=== PATIENT | female | born 1975 | race Caucasian/White ===

== ENCOUNTER 2025-01-04 15:50 | Outpatient (REF) | payer BC, SELFPAY ==
[2025-01-04 17:33] LABS: Alanine Aminotransferase 23 U/L (0-31); Albumin Level 4.2 g/dL (3.5-5.0); Alkaline Phosphatase 43 U/L (39-117); Aspartate Amino Transferase 26 U/L (5-31); Bilirubin Direct < 0.2 mg/dL (0.0-0.5); Bilirubin Total 0.2 mg/dL (0.0-1.0); Total Protein 7.3 g/dL (6.5-8.0)
--- OUTSIDE RECORDS SUMMARY | 2025-01-04 19:11 | XMS_ITS | Clinical Summary ---
Author Organization [facility] [address] [facility] lding Address [address] [place] [address] Phone Care Team Providers Care Dialysis Biomed Technician Name Role Phone Suzi Boyle MD Primary Care Prov ider Allergies Active Allergy Reactions Criticality Noted Date Comments Codeine 03/09/2006 Lorazepam 03/09/2006 Meperidine Hcl 03/09/2006 Medications traMADoL (ULTRAM) 50 mg tablet TAKE 1 TABLET BY MOUTH FOUR TIMES A DAY FOR 7 DAYS 01/27/2024 Active cycloSPORINE (Restasis MultiDose) 0.05 % drops INSTILL 1 DROP INTO AFFECTED EYE EVERY 12 HOURS 07/26/2022 Active cholecalciferol (VITAMIN D-3) 50 mcg (2,000 unit) tablet Take 1 Tablet by mouth daily. During winter and spring Active desvenlafaxine 50 mg tablet extended release 24 hr Take 50 mg by mouth daily. Active multivitamin with minerals tablet Take 1 Tab by mouth daily. Active Active Problems Problem Noted Date Diagnosed Date Chronic low back pain 08/04/2024 Acute hip pain, left 04/04/2024 Overview (08/04/2024): Last Assessment & Plan: Ms. Peraza describes left anterior thigh pain that began in July 2023 without any inciting event. This gradually improved then she developed left lower back pain focused in the buttock, hip and groin this past November, again without any injury. She has a very hard time sleeping, standing and walking. She needs assistance with stairs. This acutely worsened in mid February where she had 4 days of being unable to lift her leg from a laying or seated position and had to use other people's crutches until she came home from vacation. This was followed by an L1-[address] Solano on 02/28/2024 without improvement. He previously started gabapentin and she underwent a left hip bursa injection in October 2023 and this March 2024. She has had some improvement since that severe episode a month ago and states that last week was her best so far where her pain was only a 3/10. Now, she has been unable to walk for the past 3 days, is currently in a wheelchair and has crutches due to the left buttock and hip pain. She lays on ice packs. On exam, she is nontender over the lumbar spine and over the SI joints though she demonstrates some transverse low back pain at the lumbosacral junction. Left hip mechanical testing provokes severe left buttock pain and internal and external rotation. Seated SLR is negative, strength 5/5. Review of her lumbar spine MRI with and without gadolinium from 12/31/2023 shows evidence of her previous surgeries with pedicle screws on the right at L2-3 and on the left at L2-3-4. There is a chronic compression fracture at L5 and a very slight disc bulge at L1-2 with some splaying of the facets. There is no central or foraminal stenosis. I do not see an etiology of her symptoms on this MRI but she is now nonweightbearing. I am going to send her for left hip x-rays to look for fracture or truly there. If this is negative, then I would like a left lower extremity EMG. Will also start Flexeril which should at least help her relax and sleep as she has had no benefit from tramadol. Left carpal tunnel syndrome 07/20/2023 Bilateral carpal tunnel syndrome 08/26/2022 Numbness in both hands 08/26/2022 Sjogren's syndrome 01/23/2022 Abnormal chest x-ray 12/03/2020 Overview (08/04/2024): 11/2020-? Nipple shadow versus lung nodule, recheck x-ray ordered. Positive ANTONELLA (antinuclear antibody) 10/21/2020 Overview (08/04/2024): +SSA, neg SSB Adverse food reaction 10/05/2018 Recurrent oral ulcers 10/05/2018 Seasonal allergic rhinitis 10/05/2018 Cervical spondylosis 11/26/2017 Overview (08/04/2024): DJD at C5-6 and C6-7, significant left-sided foraminal stenosis at C6-7 Last Assessment & Plan: Ms. Thompson returns with ongoing issues of severe neck pain extending around to her anterior chest. She states that it hurts to look up, her head can feel heavy and like its not sitting in the right place and it seems that she is never without pain. She describes some numbness and tingling in her arms and hands without weakness. She has had extensive treatment including physical therapy which made her worse, in particular, she was incapacitated for 3 days after traction. She has suspected left carpal tunnel syndrome for which an initial injection helped quite a bit. She had a repeat injection 3 weeks ago and was advised not to have any further ones. On exam, cervical rotation is nearly 75 degrees bilaterally, strength is 5/5, she is diffusely hyporeflexic in the upper extremities, knee jerks are 1+, gait is steady, and that there were no myelopathic findings. Review of the cervical spine MRI from [facility] dated 01/17/2023 shows reversal of the normal lordosis with loss of disc height anteriorly with Modic changes at C3-4, kyphosis at C4-5 and severe disc desiccation and loss of height at C5-6 with moderate bilateral foraminal narrowing and at C6-7 with moderate left foraminal narrowing. We reviewed these films in detail and, while C5-6 and C6-7 exhibit the worst degenerative disc disease, there is disease at the other levels and I cautioned her to consider the risks of adjacent segment progression beyond normal aging if we were to treat the to lower levels surgically. She cannot recall a specific injury that may have prompted such diffuse degenerative changes but she did smoke for 13 years 20 years ago. We talked about other treatment options such as trying a home traction unit, acupuncture followed by posture correction/cervical stabilization exercises, epidural injections and surgery. She was given brochures on acupuncture and we will refer her for a C6-7 ROWAN. I believe if she gets her pain under better control, she may make more progress with PT exercises. Menorrhagia 08/30/2017 Anxiety 05/12/2010 Backache 03/09/2006 Overview (08/04/2024): IMO update Encounters Date Type Department Care Team Description 11/10/2024 Telephone Adult Medicine - [place] [address] [place] [address] Suzi Boyle MD Referral (Referral for Family Physiatry) 10/13/2024 Telephone Gastroenterology - [address] [address] [facility] [address] [place] [address] Anne Marie Ashton MD 10/12/2024 Telephone Adult Medicine - [place] [address] [place] [address] Suzi Boyle MD from Last 3 Months Immunizations Name Administration Dates Next Due Influenza Quadravalent, MDCK , 0.5ml, preservative free (Flucelvax) 6mo and older 2020 Pfizer SARS-CoV-2 COVID-19, mRNA, LNP-S, preservative free 09/28/2021 Td Tetanus diptheria (Tdvax) 7yo and older 06/08 Tdap Tetanus diptheria acell ular pertussis (Boostrix; Adacel) 7yo and older 04/05/2019 Surgical History Surgery Date Site/Laterality Comments OTHER SURGICAL HISTORY PROCEDURE: ---- OTHER ----; COMMENT: Hand surgery secondary to trauma OTHER SURGICAL HISTORY PROCEDURE: ---- OTHER ----; COMMENT: Hand surgery secondary to trauma WISDOM TOOTH EXTRACTION PROCEDURE: HISTORICAL WISDOM TEETH EXTRACTION OTHER SURGICAL HISTORY 2003 PROCEDURE: IMPLANT BREAST SILICONE/EQ; COMMENT: saline KNEE SURGERY 08/2012 PROCEDURE: HISTORICAL KNEE SURGERY; COMMENT: Left ACL reconstruction; [facility] BACK SURGERY 1989 PROCEDURE: HISTORICAL BACK SURGERY; COMMENT: L4-5 fusion, harvest of iliac crest bone graft 1989 and hardware removed 2001 OTHER SURGICAL HISTORY 08/30/2017 PROCEDURE: HI HYSTEROSCOPY ENDOMETRIAL ABLATION; COMMENT: hysteroscopy, fractional D&C and Coretta uterine ablation - BACK SURGERY 05/18/2019 PROCEDURE: HISTORICAL BACK SURGERY; COMMENT: L2-4 decompression and fusion for adjacent segment degeneration and spondylolisthesis, Dr. Asher BACK SURGERY 08/2020 PROCEDURE: HISTORICAL BACK SURGERY; COMMENT: L2-4 revision for fractured left L4 screw, Dr. Asher CARPAL TUNNEL RELEASE 07/21/2023 Left PROCEDURE: HISTORICAL CARPAL TUNNEL REL Medical History Medical History Date Comments Backache, unspecified 03/09/2006 DX:Backach e, unspecified Anxiety 05/12/2010 DX:Anxiety Other specified personal his tory presenting hazards to health(V15.89) DX:Other specifie d personal history presenting hazards to health(V15.89); COMMENT: culpo Family History Medical History Relation Name Comments Breast cancer Aunt m 60s mothers sister Hypertension Brother 1 Other: sudden cardiac cath Brother 2 d eceased at 50 Prostate cancer Father No Known Problems Maternal Grandfather No Known Problems Maternal Grandmother Lung cancer Mother Other: hashimotos Mother Other: shellfish Mother Diabetes Mother's side 1 Other: heart disease Mother's side 2 No Known Problems Paternal Grandfather No Known Problems Paternal Grandmother Hypertension Sister Relation Name Status Comments Aunt m 60s Alive Brother 1 Alive Brother 2 (Age 50) Father Alive Maternal Grandfather Maternal Grandmother Mother Alive hypothyroidism Mother's side 1 Mother's side 2 Paternal Grandfather Paternal Grandmother Sister Alive Social History Tobacco Use Types Packs/Day Years Used Date Smoking Tobacco: Former Cigarettes Q uit: 11/08/1990 Smokeless Tobacco: Never Alcohol Use Standard Drinks/Week Comments Not Currently 0 (1 standard drink = 0.6 oz pur e alcohol) Housing Instability Answer Date Recorde d Are you worried that in the next 2 months you may not have stable housing? No 09/12/2024 Food Access & Nutrition Answer Date Rec orded Do you have access to a vari ety of food including fruits and vegetables? Yes 09/12/2024 Access to Healthcare Answer Date Record ed Within the last 3 months, errol wade many times did you visit the emergency department for your medical care? 0 09/12/2024 Health Literacy Answer Date Recorded How often do you need to hav e someone help you when you read instructions, pamphlets, or other written material from your doctor or pharmacy? Never 09/12/2024 Caregiver: How often do you need to have someone help you when you read instructions, pamphlets, or other written material from your doctor or pharmacy? Not on file 09/12/2024 Financial Risk Answer Date Recorded How hard is it for you to pa y for the very basics like food, housing, medical care, and air conditioning / heating? Not very hard 09/12/2024 Transportation Answer Date Recorded Has the lack of transportati on kept you from meetings, work, or from getting things needed for daily living? No Has the lack of transportati on kept you from medical appointments or from getting medications? No 09/12/2024 Social Isolation Answer Date Recorded How often do you feel lonely or isolated from th ose around you? Never 09/12/2024 Food Risk Answer Date Recorded Within the past 12 months we worried whether our food would run out before we got money to buy more. Never true 09/12/2024 Within the past 12 months th e food we bought just didn't last and we didn't have money to get more. Never true 09/12/2024 Dependent Care Answer Date Recorded Do you need help finding or paying for care for your loved ones. For example, child support agent or elderly care for an older adult? No 09/12/2024 Education Answer Date Recorded Do you think completing more education or training, like finishing a GED, going to college, or learning a trade, would be helpful for you? No 09/12/2024 Employment and Income Answer Date Recor ded During the last four weeks, have you been actively looking for work? No 09/12/2024 Living Situation Answer Date Recorded What is your living situation? 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 Not on file Not on file Not on file Obstetrics History Para Term AB IAB SAB Ectopic Multiple Livin g Live Births 3 3 3 3 Date Outcome GA Total Labor Labor/2nd/3rd Weight Sex Type Anes PTL Alexandra A1 A5 Name Clin Term Term Term Last Filed Vital Signs Vital Sign Reading Time Taken Comments Blood Pressure 103/70 09/12/2024 4:01 PM EST Pulse 81 09/12/2024 4:01 PM EST Temperature 36.8 ??C (98.3 ??F) 09/12/2024 4:01 PM ES T Respiratory Rate - - Oxygen Saturation - - Inhaled Oxygen Concentration - - Weight 67.1 kg (148 lb) 09/12/2024 4:01 PM EST Height 163.8 cm (5' 4.5 ) 09/12/2024 4:01 PM EST Body Mass Index 25.01 09/12/2024 4:01 PM EST Plan of Treatment Upcoming Encounters Date Type Department Care Team (Late st Contact Info) Description 02/06/2025 3:30 PM EDT Office Visit Obstetrics and Gynecology - [address] [phone] Jennifer Patiño CNM [address] [place] [phone] Health Maintenance Due Date Last Done Comments Hepatitis B Vaccines (1 of 3 - 19+ 3-dose series) 1993 Colorectal Cancer Screening: Colonoscopy 10/17/2022 HIV Screening 10/17/2022 COVID-19 Vaccine ( season) 2024 09/28/2021, 02/16/2021, 01/26/2021 Pneumococcal Vaccine: 50+ Years (1 of 1 - PCV) 2024 Zoster Vaccines (1 of 2) 2024 Influenza Vaccine (#1) 2025 2020 Postp oned from 07/09/2024 (Patient Refused) Social Influencers of Health Screening 09/12/2025 09/12/2024 Depression Screening 11/19/2025 11/19/2024 Cervical Cancer Screening: HPV 08/05/2026 08/05/2021 Breast Cancer Screening 10/02/2026 10/02/20 24, 09/28/2023, 09/23/2022, Additional history exists DTaP,Tdap,and Td Vaccines (3 - Td or Tdap) 04/05/2029 04/05/2019, 06/08/2005 Cholesterol Screening (Lipid Panel) 09/18/2029 09/18/2024, 01/23/2022 Hepatitis C Screening Completed 09/18/2024 HIB Vaccines Aged Out No longer eligi ble based on patient's age to complete this topic HPV Vaccines Aged Out No longer eligi ble based on patient's age to complete this topic Hepatitis A Vaccines Aged Out No long er eligible based on patient's age to complete this topic IPV Vaccines Aged Out No longer eligi ble based on patient's age to complete this topic MMR Vaccines Aged Out No longer eligi ble based on patient's age to complete this topic Meningococcal ACWY Vaccine Aged Out N o longer eligible based on patient's age to complete this topic Meningococcal B Vacine Aged Out No lo nger eligible based on patient's age to complete this topic Pneumococcal Vaccine: Pediatrics (0 to 5 Years) and At-Risk Patients (6 to 64 Years) Aged Out No longer eligible based on patient's age to complete this topic RSV Immunization Patients Under 20 months Aged Out No longer eligible based on patient's age to complete this topic Varicella Vaccines Aged Out No longer eligible based on patient's age to complete this topic Procedures Procedure Name Priority Date/Time Associated Diagnosis Comments MG MAMMO DIGITAL SCREENING W DUC BILAT Routine 10/02/2024 4:45 PM EST Encounter for screening mammogram for breast cancer HEPATITIS C ANTIBODY Routine 09/18/2024 9:03 AM EST Need for hepatitis C screening test LIPID PANEL WITH REFLEX TO DIRECT LDL Routine 09/18/2024 9:03 AM EST Screening, lipid HM HPV Routine 08/05/2021 from Last 3 Months or Most Recently Relevant to Health Maintenance Results * MG Mammo Digital Screening w Duc bilat (10/02/2024 4:45 PM EST) Anatomical Region Laterality Modality Breast Bilateral Mammography 10/03/2024 10:1 4 AM EST Impressions 10/03/2024 10:19 AM EST Stable mammographic appearance of the breasts. ??No evidence of malignancy is seen. A negative mammogram in the presence of a clinically suspicious palpable abnormality does not preclude the possibility of malignancy or alter the indications for biopsy. BI-RADS: ??Category 1: Negative RECOMMENDATION(S): 1: Routine screening mammogram BILATERAL in 1 year. Mammo Location: [facility], [address] [place] [address], [phone], . -------- FINAL REPORT -------- Dictated By: Milly Villagomez Dictated Date: 10/03/2024 10:14 ET Assigned Physician: Milly Villagomez Reviewed and Electronically Signed By: Milly Villagomez Signed Date: 10/03/2024 10:19 ET Workstation ID: [id number] Transcribed By: Self Edit Transcribed Date: 10/03/2024 10:14 ET Narrative 10/03/2024 10:19 AM EST EXAM: MAMMO DIGITAL SCREENING W DUC BILAT EXAM DATE: 10/02/2024 4:30 PM HISTORY: ??Breast cancer screen, avg risk, asymptomatic (Age => 40y) COMPARISON: Mammograms dating back to 09/05/2020 with most recent of 09/28/2023. TECHNIQUE: Bilateral digital breast tomosynthesis with routine and displacement views was performed in the CC and MLO projections. Computer aided detection with Pollen AI 3D 3.1 was employed. TISSUE DENSITY: b. There are scattered areas of fibroglandular density. FINDINGS: No suspicious masses, grouped microcalcifications, or areas of architectural distortion are seen. The skin and vascularity are unremarkable. The visualized saline implants are intact. Procedure Note Milly Villagomez MD - 10/03/2024 EXAM: MAMMO DIGITAL SCREENING W DUC BILAT EXAM DATE: 10/02/2024 4:30 PM HISTORY: Breast cancer screen, avg risk, asymptomatic (Age => 40y) COMPARISON: Mammograms dating back to 09/05/2020 with most recent of09/28/2023. TECHNIQUE: Bilateral digital breast tomosynthesis with routine anddisplacement views was performed in the CC and MLO projections. Computeraided detection with Pollen AI 3D 3.1 was employed. TISSUE DENSITY: b. There are scattered areas of fibroglandular density. FINDINGS: No suspicious masses, grouped microcalcifications, or areas ofarchitectural distortion are seen. The skin and vascularity areunremarkable. The visualized saline implants are intact. IMPRESSION: Stable mammographic appearance of the breasts. No evidence of malignancyis seen. A negative mammogram in the presence of a clinically suspicious palpableabnormality does not preclude the possibility of malignancy or alter theindications for biopsy. BI-RADS: Category 1: Negative RECOMMENDATION(S): 1: Routine screening mammogram BILATERAL in 1 year. Mammo Location: [facility], [address] [place] [address], [phone], . -------- FINAL REPORT -------- Dictated By: Milly Villagomez Dictated Date: 10/03/2024 10:14 ET Assigned Physician: Milly Villagomez Reviewed and Electronically Signed By: Milly Villagomez Signed Date: 10/03/2024 10:19 ET Workstation ID: [id number] Transcribed By: Self Edit Transcribed Date: 10/03/2024 10:14 ET Suzi Boyle MD IMG BI PROCEDURES Final Result * Hepatitis C antibody (09/18/2024 9:03 AM EST) [facility] Hepatitis C Antibody Negative Negative LAB CHEMISTRY METHOD 09/18/2024 12:59 PM EST [facility] Blood Venous blood specimen / Unknown Venipuncture / Unknown 09/18/2024 9:03 AM EST 09/18/2024 9:03 AM EST Tre [facility] LAB BLOOD ORDERABLES Final Res ult [facility] [address] [place] [address], [place] [phone] * (ABNORMAL) Lipid panel with reflex to direct LDL (09/18/2024 9:03 AM EST) Pathologist [facility] Cholesterol 205(H) 0 - 200 mg/dL LAB CHEMISTRY METHOD 09/18/2024 12:20 PM EST [facility] Triglycerides 68 0 - 150 mg/dL LAB CHEMISTRY METHOD 09/18/2024 12:20 PM EST [facility] HDL 88 >=40 mg/dL LAB CHEMISTRY METHOD 09/18/2024 12:20 PM [facility] LDL Calculated 103(H) 0 - 100 mg/dL LAB CHEMISTRY METHOD 09/18/2024 12:20 PM EST [facility] VLDL Cholesterol [place] 13.6 mg/dL LAB CHEMISTRY METHOD 09/18/2024 12:20 PM EST [facility] Non HDL Chol. (LDL+VLDL) 117 <145 mg/dL LAB CHEMISTRY METHOD 09/18/2024 12:20 PM [facility] Chol/HDL Ratio 2.3 0.0 - 4.4 LAB CHEMISTRY METHOD 09/18/2024 12:20 PM [facility] Blood Venous blood specimen / Unknown Venipuncture / Unknown 09/18/2024 9:03 AM EST 09/18/2024 9:03 AM EST Tre [facility] LAB BLOOD ORDERABLES Final Res ult [facility] [address] [place] [address], [place] [phone] * Cervical Cancer Screening: HPV (08/05/2021) Pathologist [facility] Cervical Cancer Screening: HPV Negative, Abstracted Historical Provider HEALTH MAINTENANCE Final Result from Last 3 Months or Most Recently Relevant to Health Maintenance Insurance [facility] Care Teams Dialysis Biomed Technician Relationship Specialty Start Date End Date Suzi Boyel MD [address] [place] [phone] PCP - General Internal Medicine 06/13/21
== END 2025-01-04 15:51 | disposition home or self-care (01) ==
LOC: HO.LAB 15:50
PROVIDERS: PCP Internal Medicine; Visit Provider Otolaryngology
DX: Z02.89 Encounter for other administrative examinations (principal)
CPT/HCPCS: 36415; 80076

== ENCOUNTER 2025-07-24 15:43 | Outpatient (AMB) | payer BC, SELFPAY ==
--- NOTE | 2025-07-24 15:48 | A.OFFVIS_ITS ---
Intake Visit Reasons: follow up Allergies lorazepam (From Ativan) Allergy (Severe, Unverified 07/25/20 15:16) AGITATION AND HALLUCINATIONS codeine (Codeine) Adverse Reaction (Mild, Unverified 07/25/20 15:16) NAUSEA & VOMITING meperidine (From Demerol) Adverse Reaction (Mild, Unverified 07/25/20 15:16) NAUSEA & VOMITING Codeine Phosphate Allergy (Unknown, Uncoded 05/24/13 00:00) vomiting Medication List - Last Reconciled 07/24/25 by Agustina White MD desvenlafaxine ER 50 mg PO DAILY tramadol 50 mg PO DAILY HPI Comments Details: This is a 48-year-old active woman with a history of Sjogren syndrome who was had to her history of spinal fracture with fusion of L4-5 in 1989 and a laminectomy and fusion in 2018 between L2 and L4 by Dr. Asher. For the last 2 years she's had intermittent pain in the left thigh and a sense of weakness. There've been times when it gets worse. There was a 2 week period in July 2023 when the left leg felt that it wasn't working normally. She subsequently developed pain in the left groin, hip and buttock area and then pinned on the calf in October. He then subsided. She had an exacerbation of severe left sciatic pain in February that lasted a total of 10 days. She was on vacation and woke up with severe pain going from the left buttock to the left calf and she could hardly walk. It then cleared up only to recur for 10 days. Again in the end of March 2024. She had the followup MRI of the lumbar spine and everything looks stable with no evidence of nerve injury. She had a nerve conduction EMG in April 2024, which was unremarkable. ?She developed fairly quick onset of anosmia and loss of taste on April 06. She also had a couple of episodes of spatial disorientation and some word finding difficulties. She just did for Covid a couple of times but was negative. In April she was given some prednisone for a week, which didn't seem to make much of a difference. Her smell has not come back, although occasionally she feels a slight with. She can tell bitter sour and extreme salt, but cannot tell flavors. No history of head trauma. She had an MRI of the brain which I reviewed with her and found to be unremarkable except for a single left posterior parietal periventricular white matter hyperintensity. [facility] Medical History (Updated 07/24/25 @ 16:10 by Agustina White MD) Sciatica of left side Anosmia Carpal tunnel syndrome, bilateral upper limbs Review of Systems Const Details: Sleep:? Difficulty getting to sleep?denies.? Difficulty maintaining sleep?denies? .? Urge to move legs?denies.? Teeth grinding?denies.? Shouting or Kicking during sleep?denies.? Abnormal behavior during sleep?denies.? Excessive sleep?denies.? Snoring?denies.? Daytime sleepiness?denies.? ?? General/Constitutional:? Change in appetite?denies.? Chills?denies.? Fatigue?denies.? Fever?denies .? Weight gain?denies.? Weight loss?denies.? ?? Ophthalmologic:? Blurred vision?denies.? Diminished visual acuity?denies.? ?? ENT:? Stuffiness?denies.? Decreased hearing?denies.? Dry mouth?denies.? Ear pain?denies.? Nosebleed?denies.? Ringing in the ears?denies.? Sinus pain?denies .? Sore throat?denies.? Swollen glands?denies.? ?? Endocrine:? Cold intolerance?denies.? Excessive thirst?denies.? Frequent urination? denies.? Heat intolerance?denies.? ?? Respiratory:? Shortness of breath?denies.? Chest pain?denies.? Cough?denies.? ?? Breast:? Breast lump?denies.? Nipple discharge?denies.? ?? Cardiovascular:? Chest pain at rest?denies.? Chest pain with exertion?denies.? Claudication?denies.? Dizziness?denies.? Fluid accumulation in the legs?denies.? Irregular heartbeat?denies.? Palpitations?denies.? ?? Gastrointestinal:? Abdominal pain?denies.? Constipation?denies.? Diarrhea?denies.? Difficulty swallowing?denies.? Heartburn?denies.? Nausea?denies.? Rectal bleeding?denies.? ?? Hematology:? Easy bruising?denies.? Prolonged bleeding?denies.? ?? Genitourinary:? Frequent urination?denies.? Urgency?denies.? Incontinence?denies.? Erectile Dysfunction?denies.? ?? Musculoskeletal:? Neck pain?denies.? Back pain?denies.? Muscle aches?denies.? Painful joints?admits.? Sciatica?left sided intermittently.? Weakness?denies.? ?? Podiatric:? Difficulty walking?denies.? Foot numbness?denies.? ?? Neurologic:? Difficulty swallowing?denies.? Balance difficulty?denies.? Coordination? normal.? Difficulty speaking?denies.? Dizziness?denies.? Fainting?denies.? Gait abnormality?denies.? Headache?denies.? Loss of strength?denies.? Loss of use of extremity?denies.? Low back pain?denies.? Memory loss?denies.? Seizures?denies.? Tics?denies.? Tingling/Numbness?denies.? Transient loss of vision?denies.? Tremor?denies.? ?? Psychiatric:? Anxiety?denies.? Auditory/visual hallucinations?denies.? Delusions?denies .? Depressed mood?denies.? Stressors?denies.? Substance abuse?denies.? Suicidal thoughts?denies.? ? Physical Exam Neuro Other: Neurological: ? Abnormal neurological findings:??none.? Mental Status:?alert and oriented X 3,?Normal attention, orientation, memory and affect.? Cranial Nerves:?Pupils are equal, round and reactive to light. Fundoscopy shows normal disc bilaterally. External occular muscles are intact. Visual diana are full, no ptosis. Face is symmetrical, no facial weakness or droop. Facial sensations are normal. Tongue protrudes in midline. Palate elevates symmetrically. Shoulder shrugging is normal..? Motor Examination:?Normal muscle tone, bulk and strength,?No atrophy or fasciculations,?No drift of the extended upper extremities,?Deep tendon reflexes are 2+?,?Plantars are flexor?.? Motor Strength:? Proximal Muscles (out of 5): ?5 ? Distal Muscles (out of 5): ?5 ? Neck Flexors (out of 5): ?5 ? Neck Extensors (out of 5): ?5 ? Deltoid (out of 5): ?5 ? Biceps (out of 5): ?5 ? Triceps (out of 5): ?5 ? Serratus Anterior (out of 5): ?5 ? Wrist Extensors (out of 5): ?5 ? APB (out of 5): ?5 ? Finger Spread (out of 5): ?5 ? Ileopsoas (out of 5): ?5 ? Quadriceps (out of 5): ?5 ? Hamstrings (out of 5): ?5 ? Tibialis Anterior (out of 5): ?5 ? Peronei (out of 5): ?5 ? EDB (out of 5): ?5 ? Gastrocnemius (out of 5): ?5 ? Straight Leg Raising:?90 degrees.? Sensory Exam:?Normal light touch, temperature, pinprick, vibration and joint-position sensations?,?Rhomberg sign is absent.? Coordination:?no ataxia,?no titubation,?gpvubl-ud-enbq, nchv-jcai-ykvt test and rapid alternating movements were normal.? Gait Exam:?Within normal limits.? Cerebellar Signs:?Tcmsyf-jc-lvin and gmyg-vy-sghg is normal,?no dysdiadochokinesia?.? Extrapyramidal System:?No tremor, rigidity with normal facial expressions,?No bradykinesia, no bradyphrenia. Normal arm swing and posture. No propulsion or retropulsion.? Speech:?Normal,?no dysphasia or dysarthria..? Mini Mental Status Exam: ? Level of Consciousness:?Alert.? Orientation:?Knows correct year, month, date, day and season,?Knows correct city, county and state. Knows correct location and floor.? Registration:?Able to register 3 objects.? Attention:?Serial 7's performed accurately.? Recall:?Able to recall 3 out of 3 objects.? Language:?Normal spontaneous speech, fluency, repetition,naming, comprehension, reading and writing.? Total Score:?30/30.? Assessment & Plan Assessment & Plan (1) Lumbar radiculitis: Comment: April 2024 NCV/EMG of lower extremities : Normal including EMG left L4-S1. Code(s): M54.16 - Radiculopathy, lumbar region Category: Medical (2) Anosmia: Code(s): R43.0 - Anosmia Category: Medical Plan: Brain MRI May 2024 reviewed with patient. Single , fairly large left posterior parietal periventricular white matter abnormality- non specific ? demyelinative.Atypical for lacunar stroke (3) Demyelinating changes in brain: Code(s): G37.9 - Demyelinating disease of central nervous system, unspecified Category: Medical Plan f/u MRI brain. Core strengthening exercises for LBP Orders: Orders MR head/brain wo/w con 4 Weeks G37.9 - Demyelinating disease of central nervous system, unspecified Coding Level of Care Code Est Pt Level 4 (46330) Diagnoses Lumbar radiculitis M54.16 Anosmia R43.0 Demyelinating changes in brain G37.9
--- OUTSIDE RECORDS SUMMARY | 2025-07-24 18:54 | XMS_ITS | Clinical Summary ---
Author Organization [facility] [address] [facility] l[address] Address [address] [place] [address] Phone Care Team Providers Care Cooker Casing Name Role Phone Suzi Boyle MD Primary Care Prov ider Allergies Active Allergy Reactions Criticality Noted Date Comments Codeine GI intolerance 03/09/2006 Meperidine Hcl GI intolerance 03/09/2006 Medications traMADoL (ULTRAM) 50 mg tablet [...] Overview (08/04/2024): Last Assessment & Plan: Ms. Conley describes left anterior thigh pain that began [...] Numbness in both hands 08/26/2022 Sjogren's syndrome (CMS/HCC V24) 01/23/2022 Abnormal chest x-ray 12/03/2020 Overview (08/04/2024): [...] Review of the cervical spine MRI from [facility] dated 01/17/2023 shows reversal of the normal [...] Encounters Date Type Department Care Team Description 06/13/2025 Telephone Adult Medicine - [place] [address] [place] [address] Suzi Sexton MD 05/17/2025 1:22 PM EDT Anesthesia Event [facility] Endoscopy [address] [place] [address] Poonam Ribera MD 05/17/2025 11:57 AM EDT - 05/17/2025 11:59 PM EDT Hospital Encounter [facility] [address] [place] [address] Anne Marie Ashton MD Johnson, Lorraine, CRNA Kriz, Petra, MD Colon cancer screening Discharge Disposition: Home or Self Care from Last 3 Months Immunizations Name Administration [...] HISTORICAL KNEE SURGERY; COMMENT: Left ACL reconstruction; [facility] BACK SURGERY 1989 PROCEDURE: HISTORICAL BACK SURGERY; COMMENT: L4-5 fusion, harvest of iliac crest bone graft 1989 and hardware removed 2001 OTHER SURGICAL HISTORY 08/30/2017 PROCEDURE: AL HYSTEROSCOPY ENDOMETRIAL ABLATION; COMMENT: hysteroscopy, fractional D&C [...] history presenting hazards to health(V15.89); COMMENT: culpo H/O Sjogren's disease ([facility] V24) Osteoarthritis Family History Medical History Relation Name Comments [...] Cigarettes Q uit: 11/08/1990 Smokeless Tobacco: Never Tobacco Cessation:Counseling Given: Not Answered Alcohol Use Standard Drinks/Week Comments Not Currently [...] for your loved ones. For example, child care supervisor or elderly care for an older adult? [...] What is your living situation? 1 11/12/2023 Interpersonal Safety Answer Date Record ed Physical Abuse 05/17/2025 Verbal Abuse 05/17/2025 Comments No Sex and Gender Information Value Date Recorded Sex Assigned at Female 07/08/2025 4:08 PM EDT Legal Sex Female 5:14 PM EST Gender Identity Female 07/08/2025 4:08 PM EDT Sexual Orientation Straight 07/08/2025 4: 08 PM EDT Occupation Industry Job Start Date Job End [...] Sign Reading Time Taken Comments Blood Pressure 113/64 05/17/2025 2:08 PM EDT Pulse 62 05/17/2025 2:08 PM EDT Temperature 36.7 C (98.1 F) 05/17/2025 1:48 PM EDT Respiratory Rate 15 05/17/2025 2:08 PM EDT Oxygen Saturation 100% 05/17/2025 2:08 PM EDT Inhaled Oxygen Concentration - - Weight 68 kg (150 lb) 05/09/2025 1:00 PM EDT Height 165.1 cm (5' 5 ) 05/09/2025 1:00 PM EDT Body Mass Index 24.96 05/09/2025 1:00 PM EDT Plan of Treatment Upcoming Encounters Date Type Department Care Team (Late st Contact Info) Description 09/13/2025 4:00 PM EST Office Visit Adult Medicine [facility] [address] [place] [id number] Tre Alexander PA [address] [place] [address] 10/08/2025 3:40 PM EST Appointment Radiology Department [address] [address] Health Maintenance Due Date Last Done Comments Hepatitis B Vaccines (1 of 3 - 19+ 3-dose series) 1993 HIV Screening 10/17/2022 Pneumococcal Vaccine: 50+ Years (1 of 1 - PCV) 2024 Zoster Vaccines (1 of 2) 2024 COVID-19 Vaccine (4 - season) 2025 09/28/2021, 02/16/2021, 01/26/2021 Influenza Vaccine (#1) 2025 2020 Social Influencers of Health Screening 09/12/2025 09/12/2024 Cervical Cancer Screening: HPV 08/05/2026 08/05/2021 Breast Cancer Screening 10/02/2026 10/02/20 24, 09/28/2023, 09/23/2022, Additional history exists DTaP,Tdap,and Td Vaccines (3 - Td or Tdap) 04/05/2029 04/05/2019, 06/08/2005 Cholesterol Screening (Lipid Panel) 09/18/2029 09/18/2024, 01/23/2022 Colorectal Cancer Screening: Colonoscopy 05/17/2035 05/17/2025 Hepatitis C Screening Completed 09/18/2024 Depression Screening Completed 02/01/2025 HIB Vaccines Aged Out No longer eligi [...] age to complete this topic Meningococcal B Vaccine Aged Out No l onger eligible based on patient's age to complete this topic RSV Immunization Patients Under 20 months Aged Out No longer eligible based on patient's age to complete this topic Varicella Vaccines Aged Out No longer eligible based on patient's age to complete this topic Procedures Procedure Name Priority Date/Time Associated Diagnosis Comments COLONOSCOPY Routine 05/17/2025 1:47 PM EDT Colon cancer screening MG MAMMO DIGITAL SCREENING W JAQUAN BILAT Routine 10/02/2024 4:45 PM EST Encounter for screening mammogram for breast cancer HEPATITIS C ANTIBODY Routine 09/18/2024 9:03 AM EST Need for hepatitis C screening test LIPID PANEL WITH REFLEX TO DIRECT LDL Routine 09/18/2024 9:03 AM EST Screening, lipid HM HPV Routine 08/05/2021 from Last 3 Months or Most Recently Relevant to Health Maintenance Results * COLONOSCOPY Anesthesia - MAC; [facility] ENDOSCOPY (05/17/2025 1:47 PM EDT) Anatomical Region Laterality Modality Endoscopy 05/17/2025 1:14 PM EDT Impressions 05/17/2025 1:45 PM EDT - Diverticulosis in the sigmoid colon and in the transverse colon. - The examination was otherwise normal on direct and retroflexion views. - No specimens collected. Recommendation: - Repeat colonoscopy in 10 years for screening purposes. Narrative 05/17/2025 1:45 PM EDT [facility] GI Patient Name: Amrita Conley Procedure Date: 05/17/2025 1:14 PM Date of : 1975 Age: 49 Gender: Female Note Status: Finalized Attending MD: Anne Marie Asthon MD, Procedure Date No Time: 05/17/2025 Procedure: Colonoscopy Indications: Screening for colorectal malignant neoplasm Providers: Anne Marie Ashton MD Referring MD: Suzi Boyle MD Medicines: Propofol per Anesthesia Complications: No immediate complications. Estimated Blood Loss: Estimated blood loss: none. Procedure: Pre-Anesthesia Assessment: - ASA Grade Assessment: II - A patient with mild systemic disease. After I obtained informed consent, the scope was passed under direct vision. Throughout the procedure, the patient's blood pressure, pulse, and oxygen saturations were monitored continuously.The Colonoscope was introduced through the anus and advanced to the cecum, identified by appendiceal orifice and ileocecal valve. The colonoscopy was performed without difficulty. The patient tolerated the procedure well. The quality of the bowel preparation was adequate. Findings: The perianal and digital rectal examinations were normal. A few small-mouthed diverticula were found in the sigmoid colon and transverse colon. The exam was otherwise without abnormality on direct and retroflexion views. Procedure Code(s): --- Professional --- G0121, Colorectal cancer screening; colonoscopy on individual not meeting criteria for high risk Diagnosis Code(s): --- Professional --- Z12.11, Encounter for screening for malignant neoplasm of colon CPT copyright 2020 [employer]. All rights reserved. The codes documented in this report are preliminary and upon vine pruner review may be revised to meet current compliance requirements. Anne Marie Ashton MD 05/17/2025 1:45:18 PM This report has been signed electronically.Anne Marie Ashton MD Number of Addenda: 0 Note Initiated On: 05/17/2025 1:14 PM Scope In: Scope Out: Endoscopy Department at [facility] - [address] [place] [phone] Procedure Note Anne Marie Ashton MD - 05/17/2025 [facility] GI Patient Name: Amrita Conley Procedure Date: 05/17/2025 1:14 PM Date of : 1975 Age: 49 Gender: Female Note Status: Finalized Attending MD: Anne Marie Ashton MD, Procedure Date No Time: 05/17/2025 Procedure: Colonoscopy Indications: Screening for colorectal malignant neoplasm Providers: Anne Marie Ashton MD Referring MD: Szui Boyle MD Medicines: Propofol per Anesthesia Complications: No immediate complications. Estimated Blood Loss: Estimated blood loss: none. Procedure: Pre-Anesthesia Assessment: - ASA Grade Assessment: II - A patient with mild systemic disease. After I obtained informed consent, the scope was passed under direct vision. Throughout theprocedure, the patient's blood pressure, pulse, and oxygen saturations were monitored continuously.The Colonoscope was introduced through the anus and advanced to the cecum, identified by appendiceal orifice and ileocecal valve. The colonoscopy was performed without difficulty. The patient tolerated the procedure well. The quality of the bowel preparation was adequate. Findings: The perianal and digital rectal examinations were normal. A few small-mouthed diverticula were found in the sigmoid colon and transverse colon. The exam was otherwise without abnormality ondirect and retroflexion views. Procedure Code(s): --- Professional --- G0121, Colorectal cancer screening; colonoscopy on individual not meeting criteria for high risk Diagnosis Code(s): --- Professional --- Z12.11, Encounter for screening for malignantneoplasm of colon CPT copyright 2020 [employer]. All rights reserved. The codes documented in this report are preliminary and upon vine pruner reviewmay be revised to meet current compliance requirements. Anne Marie Ashton MD 05/17/2025 1:45:18 PM This report has been signed electronically.Anne Marie Ashton MD Number of Addenda: 0 Note Initiated On: 05/17/2025 1:14 PM Scope In: Scope Out: Endoscopy Department at [facility] - [address] [place] [id number] IMPRESSION: - Diverticulosis in the sigmoid colon and in the transverse colon. - The examination was otherwise normal on directand retroflexion views. - No specimens collected. Recommendation: - Repeat colonoscopy in 10 years for screening purposes. Anne Marie Ashton MD GI~PROCEDURE ORDERABLES Final Result * MG Mammo Digital Screening w Jaquan bilat (10/02/2024 4:45 PM EST) Anatomical Region Laterality Modality Breast Bilateral Mammography 10/03/2024 10:1 4 AM EST Impressions 10/03/2024 10:19 AM EST Stable mammographic appearance of the breasts. No evidence of malignancy is seen. A negative mammogram in the presence of a clinically suspicious palpable abnormality does not preclude the possibility of malignancy or alter the indications for biopsy. BI-RADS: Category 1: Negative RECOMMENDATION(S): 1: Routine screening mammogram BILATERAL in 1 year. Mammo Location: [facility], [address] [place] [address], [facility], . -------- FINAL REPORT -------- Dictated By: Milly Villagomez Dictated Date: 10/03/2024 10:14 ET Assigned Physician: Milly Villagomez Reviewed and Electronically Signed By: Milly Villagomez Signed Date: 10/03/2024 10:19 ET Workstation ID: [id number] Transcribed By: Self Edit Transcribed Date: 10/03/2024 10:14 ET Narrative 10/03/2024 10:19 AM EST EXAM: MG MAMMO DIGITAL SCREENING W JAQUAN BILAT EXAM DATE: 10/02/2024 4:30 PM HISTORY: Breast cancer screen, avg risk, asymptomatic (Age => 40y) COMPARISON: Mammograms dating back to 09/05/2020 with most recent of 09/28/2023. TECHNIQUE: Bilateral digital breast tomosynthesis with routine and displacement views was performed in the CC and MLO projections. Computer aided detection with [employer] AI 3D 3.1 was employed. TISSUE DENSITY: b. There are scattered areas of fibroglandular density. FINDINGS: No suspicious masses, grouped microcalcifications, or areas of architectural distortion are seen. The skin and vascularity are unremarkable. The visualized saline implants are intact. Procedure Note Milly Villagomez MD - 10/03/2024 EXAM: MAMMO DIGITAL SCREENING W JAQUAN BILAT EXAM DATE: 10/02/2024 4:30 PM HISTORY: Breast cancer screen, avg risk, asymptomatic (Age => 40y) COMPARISON: Mammograms dating back to 09/05/2020 with most recent of09/28/2023. TECHNIQUE: Bilateral digital breast tomosynthesis with routine anddisplacement views was performed in the CC and MLO projections. Computeraided detection with i[employer] ProFound AI 3D 3.1 was employed. TISSUE DENSITY: [...] mammogram BILATERAL in 1 year. Mammo Location: [facility], [address] [place] [address], [id number], . -------- FINAL REPORT -------- Dictated By: Milly Villagomez Dictated Date: 10/03/2024 10:14 ET Assigned Physician: Milly Villagomez Reviewed and Electronically Signed By: Milly Villagomez Signed Date: 10/03/2024 10:19 ET Workstation ID: [id number] Transcribed By: Self Edit Transcribed Date: 10/03/2024 10:14 ET us Suzi Boyle MD IMG BI PROCEDURES Final Result * Hepatitis C antibody (09/18/2024 9:03 AM EST) Pathologist [facility] Hepatitis C Antibody Negative Negative LAB CHEMISTRY METHOD 09/18/2024 12:59 PM EST [facility] Blood Venous blood specimen / Unknown Venipuncture / Unknown 09/18/2024 9:03 AM EST 09/18/2024 9:03 AM EST us Tre [facility] LAB BLOOD ORDERABLES Final Res ult [facility] [address] [place] [address], [place] [phone] * (ABNORMAL) Lipid panel with reflex to direct LDL (09/18/2024 9:03 AM EST) [facility] Cholesterol 205(H) 0 - 200 mg/dL LAB CHEMISTRY METHOD 09/18/2024 12:20 PM [facility] Triglycerides 68 0 - 150 mg/dL LAB CHEMISTRY METHOD 09/18/2024 12:20 PM [facility] HDL 88 >=40 mg/dL LAB CHEMISTRY METHOD 09/18/2024 12:20 PM EST [facility] LDL Calculated 103(H) 0 - 100 mg/dL LAB CHEMISTRY METHOD 09/18/2024 12:20 PM [facility] VLDL Cholesterol [place] 13.6 mg/dL LAB CHEMISTRY METHOD 09/18/2024 12:20 PM EST [facility] Non HDL Chol. (LDL+VLDL) 117 <145 mg/dL LAB CHEMISTRY METHOD 09/18/2024 12:20 PM [facility] Chol/HDL Ratio 2.3 0.0 - 4.4 LAB CHEMISTRY METHOD 09/18/2024 12:20 PM EST [facility] Blood Venous blood specimen / Unknown Venipuncture / Unknown 09/18/2024 9:03 AM EST 09/18/2024 9:03 AM EST Tre [facility] LAB BLOOD ORDERABLES Final Res ult [facility] [address] [place] [address], * Cervical Cancer Screening: HPV (08/05/2021) Cervical Cancer Screening: HPV Negative, Abstracted Historical Provider HEALTH MAINTENANCE Final Result from Last 3 Months or Most Recently Relevant to Health Maintenance Insurance [facility] Care Teams Cooker Casing Relationship Specialty Start Date End Date Suzi Boyle MD PCP - General Internal Medicine 06/13/21
== END 2025-07-24 16:15 | disposition home or self-care (01) ==
PROVIDERS: PCP Internal Medicine; Referring Provider Internal Medicine; Visit Provider Psychiatry & Neurology Neurology
DX: M54.16 Radiculopathy, lumbar region (principal); R43.0 Anosmia; G37.9 Demyelinating disease of central nervous system, unspecified
CPT/HCPCS: 99214

== ENCOUNTER 2025-08-21 16:17 | Outpatient (REF) | payer BC, SELFPAY ==
--- NOTE | ~2025-08-21 | MR_ITS ---
CLINICAL HISTORY: G37.9 - Demyelinating disease of central nervous system, unspecified MR Brain with and without gadolinium Comparison: None provided Findings: No restricted diffusion. No intra-axial mass or hemorrhage. Left parietal abutting the left lateral ventricle posterior horn lacunar focus of increased DWI and T2 signal without matching enhancement and low T1 signal. Right frontal extra-axial avidly enhancing mass, 1.5 x 1.4 x 1.2 cm, axial image number 132 of 170 series 17 and coronal image number 28 of 36 series 15. Vascular flow voids are intact. The orbits are normal. The sinuses and mastoid air cells are clear. No focal bone lesion. No acute ischemic event identified. IMPRESSION: 1. Right frontal extra-axial avidly enhancing mass, measuring 1.5 x 1.4 x 1.2 cm; meningioma. 2. Left parietal lacunar focus adjacent to the left lateral ventricle posterior horn of decreased T1 increased T2 and FLAIR signal with no enhancement; chronic microvascular ischemic disease versus a less likely single lesion of quiescent demyelinating process. 3. No acute ischemic event. This document has been electronically signed by: Delfin Goetz MD on 08/21/2025 17:51:26
== END 2025-08-21 16:18 | disposition home or self-care (01) ==
LOC: HO.MRI 16:17
PROVIDERS: Visit Provider Psychiatry & Neurology Neurology
DX: G37.9 Demyelinating disease of central nervous system, unspecified (principal)
CPT/HCPCS: 70553; A9585

== ENCOUNTER → 2025-08-21 16:17 | Outpatient (BNV) | payer BC, SELFPAY | PROVIDERS: Visit Provider Radiology Diagnostic Radiology | DX: D32.0 Benign neoplasm of cerebral meninges (principal) | CPT/HCPCS: 70553 ==

== ENCOUNTER 2025-08-29 15:30 | Outpatient (AMB) | payer BC, SELFPAY ==
--- NOTE | 2025-08-29 15:44 | A.OFFVIS_ITS ---
Intake Visit Reasons: MRI results ok to double book per (SJD) Allergies lorazepam (From Ativan) Allergy (Severe, Unverified 07/25/20 15:16) AGITATION AND HALLUCINATIONS codeine (Codeine) Adverse Reaction (Mild, Unverified 07/25/20 15:16) NAUSEA & VOMITING meperidine (From Demerol) Adverse Reaction (Mild, Unverified 07/25/20 15:16) NAUSEA & VOMITING Codeine Phosphate Allergy (Unknown, Uncoded 05/24/13 00:00) vomiting Medication List - Last Reconciled 08/29/25 by Agustina White MD desvenlafaxine succinate ER 25 mg PO DAILY tramadol 50 mg PO DAILY HPI Comments Details: This is a 48-year-old active woman with a history of Sjogren syndrome who was had to her history of spinal fracture with fusion of L4-5 in 1989 and a laminectomy and fusion in 2018 between L2 and L4 by Dr. Asher. For the last 2 years she's had intermittent pain in the left thigh and a sense of weakness. There've been times when it gets worse. There was a 2 week period in July 2023 when the left leg felt that it wasn't working normally. She subsequently developed pain in the left groin, hip and buttock area and then pinned on the calf in October. He then subsided. She had an exacerbation of severe left sciatic pain in February that lasted a total of 10 days. She was on vacation and woke up with severe pain going from the left buttock to the left calf and she could hardly walk. It then cleared up only to recur for 10 days. Again in the end of March 2024. She had the followup MRI of the lumbar spine and everything looks stable with no evidence of nerve injury. She had a nerve conduction EMG in April 2024, which was unremarkable. ?She developed fairly quick onset of anosmia and loss of taste on April 06. She also had a couple of episodes of spatial disorientation and some word finding difficulties. She just did for Covid a couple of times but was negative. In April she was given some prednisone for a week, which didn't seem to make much of a difference. Her smell has not come back, although occasionally she feels a slight with. She can tell bitter sour and extreme salt, but cannot tell flavors. No history of head trauma. She had an MRI of the brain which I reviewed with her and found to be unremarkable except for a single left posterior parietal periventricular white matter hyperintensity. [facility] Medical History (Updated 08/29/25 @ 16:01 by Agustina White MD) Sciatica of left side Anosmia Carpal tunnel syndrome, bilateral upper limbs Review of Systems Const Details: Sleep:? Difficulty getting to sleep?denies.? Difficulty maintaining sleep?denies? .? Urge to move legs?denies.? Teeth grinding?denies.? Shouting or Kicking during sleep?denies.? Abnormal behavior during sleep?denies.? Excessive sleep?denies.? Snoring?denies.? Daytime sleepiness?denies.? ?? General/Constitutional:? Change in appetite?denies.? Chills?denies.? Fatigue?denies.? Fever?denies .? Weight gain?denies.? Weight loss?denies.? ?? Ophthalmologic:? Blurred vision?denies.? Diminished visual acuity?denies.? ?? ENT:? Stuffiness?denies.? Decreased hearing?denies.? Dry mouth?denies.? Ear pain?denies.? Nosebleed?denies.? Ringing in the ears?denies.? Sinus pain?denies .? Sore throat?denies.? Swollen glands?denies.? ?? Endocrine:? Cold intolerance?denies.? Excessive thirst?denies.? Frequent urination? denies.? Heat intolerance?denies.? ?? Respiratory:? Shortness of breath?denies.? Chest pain?denies.? Cough?denies.? ?? Breast:? Breast lump?denies.? Nipple discharge?denies.? ?? Cardiovascular:? Chest pain at rest?denies.? Chest pain with exertion?denies.? Claudication?denies.? Dizziness?denies.? Fluid accumulation in the legs?denies.? Irregular heartbeat?denies.? Palpitations?denies.? ?? Gastrointestinal:? Abdominal pain?denies.? Constipation?denies.? Diarrhea?denies.? Difficulty swallowing?denies.? Heartburn?denies.? Nausea?denies.? Rectal bleeding?denies.? ?? Hematology:? Easy bruising?denies.? Prolonged bleeding?denies.? ?? Genitourinary:? Frequent urination?denies.? Urgency?denies.? Incontinence?denies.? Erectile Dysfunction?denies.? ?? Musculoskeletal:? Neck pain?denies.? Back pain?denies.? Muscle aches?denies.? Painful joints?admits.? Sciatica?left sided intermittently.? Weakness?denies.? ?? Podiatric:? Difficulty walking?denies.? Foot numbness?denies.? ?? Neurologic:? Difficulty swallowing?denies.? Balance difficulty?denies.? Coordination? normal.? Difficulty speaking?denies.? Dizziness?denies.? Fainting?denies.? Gait abnormality?denies.? Headache?denies.? Loss of strength?denies.? Loss of use of extremity?denies.? Low back pain?denies.? Memory loss?denies.? Seizures?denies.? Tics?denies.? Tingling/Numbness?denies.? Transient loss of vision?denies.? Tremor?denies.? ?? Psychiatric:? Anxiety?denies.? Auditory/visual hallucinations?denies.? Delusions?denies .? Depressed mood?denies.? Stressors?denies.? Substance abuse?denies.? Suicidal thoughts?denies.? ? Physical Exam Neuro Other: Neurological: ? Abnormal neurological findings:??none.? Mental Status:?alert and oriented X 3,?Normal attention, orientation, memory and affect.? Cranial Nerves:?Pupils are equal, round and reactive to light. Fundoscopy shows normal disc bilaterally. External occular muscles are intact. Visual diana are full, no ptosis. Face is symmetrical, no facial weakness or droop. Facial sensations are normal. Tongue protrudes in midline. Palate elevates symmetrically. Shoulder shrugging is normal..? Motor Examination:?Normal muscle tone, bulk and strength,?No atrophy or fasciculations,?No drift of the extended upper extremities,?Deep tendon reflexes are 2+?,?Plantars are flexor?.? Motor Strength:? Proximal Muscles (out of 5): ?5 ? Distal Muscles (out of 5): ?5 ? Neck Flexors (out of 5): ?5 ? Neck Extensors (out of 5): ?5 ? Deltoid (out of 5): ?5 ? Biceps (out of 5): ?5 ? Triceps (out of 5): ?5 ? Serratus Anterior (out of 5): ?5 ? Wrist Extensors (out of 5): ?5 ? APB (out of 5): ?5 ? Finger Spread (out of 5): ?5 ? Ileopsoas (out of 5): ?5 ? Quadriceps (out of 5): ?5 ? Hamstrings (out of 5): ?5 ? Tibialis Anterior (out of 5): ?5 ? Peronei (out of 5): ?5 ? EDB (out of 5): ?5 ? Gastrocnemius (out of 5): ?5 ? Straight Leg Raising:?90 degrees.? Sensory Exam:?Normal light touch, temperature, pinprick, vibration and joint-position sensations?,?Rhomberg sign is absent.? Coordination:?no ataxia,?no titubation,?wfgwbu-fd-djga, ayqk-huhs-xzrn test and rapid alternating movements were normal.? Gait Exam:?Within normal limits.? Cerebellar Signs:?Qfqrih-le-obqt and cyhn-yc-trlh is normal,?no dysdiadochokinesia?.? Extrapyramidal System:?No tremor, rigidity with normal facial expressions,?No bradykinesia, no bradyphrenia. Normal arm swing and posture. No propulsion or retropulsion.? Speech:?Normal,?no dysphasia or dysarthria..? Mini Mental Status Exam: ? Level of Consciousness:?Alert.? Orientation:?Knows correct year, month, date, day and season,?Knows correct city, county and state. Knows correct location and floor.? Registration:?Able to register 3 objects.? Attention:?Serial 7's performed accurately.? Recall:?Able to recall 3 out of 3 objects.? Language:?Normal spontaneous speech, fluency, repetition,naming, comprehension, reading and writing.? Total Score:?30/30.? Assessment & Plan Assessment & Plan (1) Lumbar radiculitis: Comment: April 2024 NCV/EMG of lower extremities : Normal including EMG left L4-S1. Code(s): M54.16 - Radiculopathy, lumbar region Category: Medical (2) Anosmia: Code(s): R43.0 - Anosmia Category: Medical Plan: Brain MRI May 2024 reviewed with patient. Single , fairly large left posterior parietal periventricular white matter abnormality- non specific ? demyelinative.Atypical for lacunar stroke (3) Demyelinating changes in brain: Code(s): G37.9 - Demyelinating disease of central nervous system, unspecified Category: Medical (4) Meningioma: Code(s): D32.9 - Benign neoplasm of meninges, unspecified Category: Medical (5) Tension headache: Code(s): G44.209 - Tension-type headache, unspecified, not intractable Category: Medical Plan Trial of Amitriptyline 10mg. > Neurosurgical consult Orders: Referrals Neurosurgery Referral D32.9 - Benign neoplasm of meninges, unspecified Medications: New amitriptyline 10 mg PO BEDTIME 30 tabs 1RF tension headache 30 days Coding Level of Care Code Est Pt Level 5 (86778) Diagnoses Lumbar radiculitis M54.16 Anosmia R43.0 Demyelinating changes in brain G37.9 Meningioma D32.9 Tension headache G44.209
--- OUTSIDE RECORDS SUMMARY | 2025-08-29 21:40 | XMS_ITS | Clinical Summary ---
Author Organization [facility] [address] [facility] [address] Address [address] [place] [address] Phone Care Team Providers Care Communication Clerk Name Role Phone Suzi Harvey MD Primary Care Prov ider Allergies Active [...] Review of the cervical spine MRI from [facility] dated 01/17/2023 shows reversal of the [...] Team Description 06/13/2025 Telephone Adult Medicine - [place] [address] [place] [address] Suzi Harvey MD from Last 3 Months Immunizations Immunization Administration Dates Next Due Influenza Quadravalent, MDCK [...] HISTORICAL KNEE SURGERY; COMMENT: Left ACL reconstruction; [facility] BACK SURGERY 1989 PROCEDURE: HISTORICAL BACK SURGERY; COMMENT: L4-5 fusion, harvest of iliac crest bone graft 1989 and hardware removed 2001 OTHER SURGICAL HISTORY 08/30/2017 PROCEDURE: [facility] HYSTEROSCOPY ENDOMETRIAL ABLATION; COMMENT: hysteroscopy, fractional D&C [...] to health(V15.89); COMMENT: culpo H/O Sjogren's disease (CMS/HCC V24) Osteoarthritis Family History Medical History Relation [...] care for your loved ones. For example, childcare attendant or elderly care for an older adult? [...] Date Recorded What is your living situation? Unrecognized valu e 09/12/2024 Interpersonal Safety Answer Date Record ed Physical Abuse Unrecognized value 05/17/2025 Verbal Abuse Unrecognized value 05/17/2025 Comments No Sex and Gender Information [...] 4:00 PM EST Office Visit Adult Medicine - [place] [address] [place] [id number] Tre Alexander PA [address] [place] [address] 10/08/2025 3:40 PM EST Appointment Radiology Department - [address] [phone] Health Maintenance Due Date Last Done Comments Hepatitis B Vaccines (1 of 3 - 19+ 3-dose series) 1993 HIV Screening 10/17/2022 Pneumococcal Vaccine: 50+ Years (1 of 1 - PCV) 2024 Zoster Vaccines (1 of 2) 2024 COVID-19 Vaccine (4 - 2024- season) 2025 09/28/2021, 02/16/2021, 01/26/2021 Influenza Vaccine (#1) 2025 2020 Social Influencers of Health Screening 09/12/2025 09/12/2024 Cervical Cancer Screening: HPV 08/05/2026 08/05/2021 Breast Cancer Screening 10/02/2026 10/02/20 24, 09/28/2023, 09/23/2022, Additional history exists DTaP,Tdap,and Td Vaccines (3 - Td or Tdap) 04/05/2029 04/05/2019, 06/08/2005 Cholesterol Screening (Lipid Panel) 09/18/2029 09/18/2024, 01/23/2022 Colorectal Cancer Screening: Colonoscopy 05/17/2035 05/17/2025 RSV Immunization Adult Patients (1 - 1-dose 75+ series) 2049 Hepatitis C Screening Completed 09/18/2024 Depression Screening [...] cancer screening MG MAMMO DIGITAL SCREENING W DUC BILAT [...] Maintenance Results * COLONOSCOPY Anesthesia - MAC; SP ENDOSCOPY (05/17/2025 1:47 PM EDT) Anatomical Region Laterality Modality Endoscopy 05/17/2025 1:14 PM EDT Impressions 05/17/2025 1:45 PM EDT - Diverticulosis in the sigmoid colon and in the transverse colon. - The examination was otherwise normal on direct and retroflexion views. - No specimens collected. Recommendation: - Repeat colonoscopy in 10 years for screening purposes. Narrative 05/17/2025 1:45 PM EDT [facility] Patient Name: Jana Peraza Procedure Date: 05/17/2025 1:14 PM Date of : 1975 Age: 49 Gender: Female Note Status: Finalized Attending MD: Anne Marie Ashton MD, Procedure Date No Time: 05/17/2025 Procedure: Colonoscopy Indications: Screening for colorectal malignant neoplasm Providers: Anne Marie Ashton MD Referring MD: Suzi Harvey MD Medicines: Propofol per Anesthesia Complications: No [...] malignant neoplasm of colon CPT copyright 2020 [employer]. All rights reserved. The codes documented in this report are preliminary and upon charter driver review may be revised to meet current compliance requirements. Anne Marie Ashton MD 05/17/2025 1:45:18 PM This report has been signed electronically.Anne Marie Ashton MD Number of Addenda: 0 Note Initiated On: 05/17/2025 1:14 PM Scope In: Scope Out: Endoscopy Department at [facility] - [address] [place], [place] [id number] Procedure Note Anne Marie Ashton MD - 05/17/2025 [facility] Patient Name: Jana Peraza Procedure Date: 05/17/2025 1:14 PM Date of : 1975 Age: 49 Gender: Female Note Status: Finalized Attending MD: Anne Marie Ashton MD, Procedure Date No Time: 05/17/2025 Procedure: Colonoscopy Indications: Screening for colorectal malignant neoplasm Providers: Anne Marie Ashton MD Referring MD: Suzi Harvey MD Medicines: Propofol per Anesthesia Complications: No [...] for malignantneoplasm of colon CPT copyright 2020 [employer]. All rights reserved. The codes documented in this report are preliminary and upon charter driver reviewmay be revised to meet current compliance requirements. Anne Marie Ashton MD 05/17/2025 1:45:18 PM This report has been signed electronically.Anne Marie Ashton MD Number of Addenda: 0 Note Initiated On: 05/17/2025 1:14 PM Scope In: Scope Out: Endoscopy Department at [facility] - [address] [place] [phone] IMPRESSION: - Diverticulosis in the sigmoid colon and in the transverse colon. - The examination was otherwise normal on directand retroflexion views. - No specimens collected. Recommendation: - Repeat colonoscopy in 10 years for screening purposes. Anne Marie Ashton MD GI~PROCEDURE ORDERABLES Final Result * MG Mammo Digital Screening w Duc [...] mammogram BILATERAL in 1 year. Mammo Location: [facility], [address] [place] [address], [id number], . -------- FINAL REPORT -------- Dictated By: Milly Villagomez Dictated Date: 10/03/2024 10:14 ET Assigned Physician: Milly Villagomez Reviewed and Electronically Signed By: Milly Villagomez Signed Date: 10/03/2024 10:19 ET Workstation ID: [id number] Transcribed By: Self Edit Transcribed Date: 10/03/2024 [...] and MLO projections. Computer aided detection with [employer] 3D 3.1 was employed. TISSUE DENSITY: b. There are scattered areas of fibroglandular density. FINDINGS: No suspicious masses, grouped microcalcifications, or areas of architectural distortion are seen. The skin and vascularity are unremarkable. The visualized saline implants are intact. Procedure Note Milly Villagomez MD - 10/03/2024 EXAM: MAMMO DIGITAL SCREENING W DUC CASTAÑEDAAT EXAM DATE: 10/02/2024 4:30 PM HISTORY: Breast cancer screen, avg risk, asymptomatic (Age => 40y) COMPARISON: Mammograms dating back to 09/05/2020 with most recent of09/28/2023. TECHNIQUE: Bilateral digital breast tomosynthesis with routine anddisplacement views was performed in the CC and MLO projections. Computeraided detection with [employer] 3D 3.1 was employed. TISSUE DENSITY: b. [...] mammogram BILATERAL in 1 year. Mammo Location: [facility], [address] [place] [address], [id number], . -------- FINAL REPORT -------- Dictated By: Milly Villagomez Dictated Date: 10/03/2024 10:14 ET Assigned Physician: Milly Villagomez Reviewed and Electronically Signed By: Milly Villagomez Signed Date: 10/03/2024 10:19 ET Workstation ID: [id number] Transcribed By: Self Edit Transcribed Date: 10/03/2024 10:14 ET us Suzi Harvey MD IM BI PROCEDURES Final Result * Hepatitis C antibody (09/18/2024 9:03 AM EST) Hepatitis C Antibody Negative Negative LAB CHEMISTRY METHOD 09/18/2024 12:59 PM EST [facility] Blood Venous blood specimen / Unknown Venipuncture / Unknown 09/18/2024 9:03 AM EST 09/18/2024 9:03 AM EST Tre [facility] BLOOD ORDERABLES Final Res ult [facility] [address] [place] [address], [place] [phone] * (ABNORMAL) Lipid panel with reflex to direct LDL (09/18/2024 9:03 AM EST) Cholesterol 205(H) 0 - 200 mg/dL LAB CHEMISTRY METHOD 09/18/2024 12:20 PM [facility] Triglycerides 68 0 - 150 mg/dL LAB CHEMISTRY METHOD 09/18/2024 12:20 PM [facility] HDL 88 >=40 mg/dL LAB CHEMISTRY METHOD 09/18/2024 12:20 PM [facility] LDL Calculated 103(H) 0 - 100 mg/dL LAB CHEMISTRY METHOD 09/18/2024 12:20 PM [facility] VLDL Cholesterol [place] 13.6 mg/dL LAB CHEMISTRY METHOD 09/18/2024 12:20 PM [facility] Non HDL Chol. (LDL+VLDL) 117 <145 mg/dL LAB CHEMISTRY METHOD 09/18/2024 12:20 PM [facility] Chol/HDL Ratio 2.3 0.0 - 4.4 LAB CHEMISTRY METHOD 09/18/2024 12:20 PM [facility] Blood Venous blood specimen / Unknown Venipuncture / Unknown 09/18/2024 9:03 AM EST 09/18/2024 9:03 AM EST Tre [facility] BLOOD ORDERABLES Final Res ult [facility] [address] [place] [address], [place] [phone] * Cervical Cancer Screening: HPV (08/05/2021) Cervical Cancer Screening: HPV Negative, Abstracted us Historical Provider HEALTH MAINTENANCE Final Result from Last 3 Months or Most Recently Relevant to Health Maintenance Insurance [facility] Care Teams Communication Clerk Relationship Specialty Start Date End Date Suzi Harvey MD PCP - General Internal Medicine 06/13/21
== END 2025-08-29 16:09 | disposition home or self-care (01) ==
LOC: HO.HSM 15:30
PROVIDERS: Visit Provider Psychiatry & Neurology Neurology
DX: M54.16 Radiculopathy, lumbar region (principal); R43.0 Anosmia; G37.9 Demyelinating disease of central nervous system, unspecified; D32.9 Benign neoplasm of meninges, unspecified; G44.209 Tension-type headache, unspecified, not intractable
CPT/HCPCS: 99214

== ENCOUNTER 2025-10-30 15:48 | Outpatient (AMB) | payer BC, SELFPAY ==
--- NOTE | 2025-10-30 15:50 | MHC.OFFVIS ---
Intake Visit Reasons: 2m Allergies lorazepam (From Ativan) Allergy (Severe, Unverified 07/25/20 15:16) AGITATION AND HALLUCINATIONS codeine (Codeine) Adverse Reaction (Mild, Unverified 07/25/20 15:16) NAUSEA & VOMITING meperidine (From Demerol) Adverse Reaction (Mild, Unverified 07/25/20 15:16) NAUSEA & VOMITING Codeine Phosphate Allergy (Unknown, Uncoded 05/24/13 00:00) vomiting Medication List - Last Reconciled 10/30/25 by Agustina White MD desvenlafaxine succinate ER 25 mg PO DAILY tramadol 50 mg PO DAILY HPI Comments Details: Her headaches have improved with the amitriptyline 10 mg HS. It has not helped her nerve pain. She has also had some return of the sense of smell since starting that. For 2 weeks straight she smelled cigarette smoke but that is gone now she can sometimes smell some spices when she opens her cabinet and sometimes smells her daughter's perfume. She saw Dr. Coehn who does not want to inter vein with the meningioma at this point and has recommended an annual follow-up MRI. She has a history of Sjogren syndrome who was had to her history of spinal fracture with fusion of L4-5 in 1989 and a laminectomy and fusion in 2018 between L2 and L4 by Dr. Asher. For the last 2 years she's had intermittent pain in the left thigh and a sense of weakness. There've been times when it gets worse. There was a 2 week period in July 2023 when the left leg felt that it wasn't working normally. She subsequently developed pain in the left groin, hip and buttock area and then pinned on the calf in October. He then subsided. She had an exacerbation of severe left sciatic pain in February that lasted a total of 10 days. She was on vacation and woke up with severe pain going from the left buttock to the left calf and she could hardly walk. It then cleared up only to recur for 10 days. Again in the end of March 2024. She had the followup MRI of the lumbar spine and everything looks stable with no evidence of nerve injury. She had a nerve conduction EMG in April 2024, which was unremarkable. ?She developed fairly quick onset of anosmia and loss of taste on April 06. She also had a couple of episodes of spatial disorientation and some word finding difficulties. She just did for Covid a couple of times but was negative. In April she was given some prednisone for a week, which didn't seem to make much of a difference. Her smell has not come back, although occasionally she feels a slight with. She can tell bitter sour and extreme salt, but cannot tell flavors. No history of head trauma. She had an MRI of the brain which I reviewed with her and found to be unremarkable except for a single left posterior parietal periventricular white matter hyperintensity. [facility] Medical History (Updated 08/29/25 @ 16:01 by Agustina White MD) Sciatica of left side Anosmia Carpal tunnel syndrome, bilateral upper limbs Review of Systems Const Details: Sleep:? Difficulty getting to sleep?denies.? Difficulty maintaining sleep?denies?.? Urge to move legs?denies.? Teeth grinding?denies.? Shouting or Kicking during sleep?denies.? Abnormal behavior during sleep?denies.? Excessive sleep?denies.? Snoring?denies.? Daytime sleepiness?denies.? ?? General/Constitutional:? Change in appetite?denies.? Chills?denies.? Fatigue?denies.? Fever?denies.? Weight gain?denies.? Weight loss?denies.? ?? Ophthalmologic:? Blurred vision?denies.? Diminished visual acuity?denies.? ?? ENT:? Stuffiness?denies.? Decreased hearing?denies.? Dry mouth?denies.? Ear pain?denies.? Nosebleed?denies.? Ringing in the ears?denies.? Sinus pain?denies.? Sore throat?denies.? Swollen glands?denies.? ?? Endocrine:? Cold intolerance?denies.? Excessive thirst?denies.? Frequent urination?denies.? Heat intolerance?denies.? ?? Respiratory:? Shortness of breath?denies.? Chest pain?denies.? Cough?denies.? ?? Breast:? Breast lump?denies.? Nipple discharge?denies.? ?? Cardiovascular:? Chest pain at rest?denies.? Chest pain with exertion?denies.? Claudication?denies.? Dizziness?denies.? Fluid accumulation in the legs?denies.? Irregular heartbeat?denies.? Palpitations?denies.? ?? Gastrointestinal:? Abdominal pain?denies.? Constipation?denies.? Diarrhea?denies.? Difficulty swallowing?denies.? Heartburn?denies.? Nausea?denies.? Rectal bleeding?denies.? ?? Hematology:? Easy bruising?denies.? Prolonged bleeding?denies.? ?? Genitourinary:? Frequent urination?denies.? Urgency?denies.? Incontinence?denies.? Erectile Dysfunction?denies.? ?? Musculoskeletal:? Neck pain?denies.? Back pain?denies.? Muscle aches?denies.? Painful joints?admits.? Sciatica?left sided intermittently.? Weakness?denies.? ?? Podiatric:? Difficulty walking?denies.? Foot numbness?denies.? ?? Neurologic:? Difficulty swallowing?denies.? Balance difficulty?denies.? Coordination?normal.? Difficulty speaking?denies.? Dizziness?denies.? Fainting?denies.? Gait abnormality?denies.? Headache?denies.? Loss of strength?denies.? Loss of use of extremity?denies.? Low back pain?denies.? Memory loss?denies.? Seizures?denies.? Tics?denies.? Tingling/Numbness?denies.? Transient loss of vision?denies.? Tremor?denies.? ?? Psychiatric:? Anxiety?denies.? Auditory/visual hallucinations?denies.? Delusions?denies.? Depressed mood?denies.? Stressors?denies.? Substance abuse?denies.? Suicidal thoughts?denies.? ? Physical Exam Neuro Other: Neurological: ? Abnormal neurological findings:??none.? Mental Status:?alert and oriented X 3,?Normal attention, orientation, memory and affect.? Cranial Nerves:?Pupils are equal, round and reactive to light. Fundoscopy shows normal disc bilaterally. External occular muscles are intact. Visual diana are full, no ptosis. Face is symmetrical, no facial weakness or droop. Facial sensations are normal. Tongue protrudes in midline. Palate elevates symmetrically. Shoulder shrugging is normal..? Motor Examination:?Normal muscle tone, bulk and strength,?No atrophy or fasciculations,?No drift of the extended upper extremities,?Deep tendon reflexes are 2+?,?Plantars are flexor?.? Motor Strength:? Proximal Muscles (out of 5): ?5 ? Distal Muscles (out of 5): ?5 ? Neck Flexors (out of 5): ?5 ? Neck Extensors (out of 5): ?5 ? Deltoid (out of 5): ?5 ? Biceps (out of 5): ?5 ? Triceps (out of 5): ?5 ? Serratus Anterior (out of 5): ?5 ? Wrist Extensors (out of 5): ?5 ? APB (out of 5): ?5 ? Finger Spread (out of 5): ?5 ? Ileopsoas (out of 5): ?5 ? Quadriceps (out of 5): ?5 ? Hamstrings (out of 5): ?5 ? Tibialis Anterior (out of 5): ?5 ? Peronei (out of 5): ?5 ? EDB (out of 5): ?5 ? Gastrocnemius (out of 5): ?5 ? Straight Leg Raising:?90 degrees.? Sensory Exam:?Normal light touch, temperature, pinprick, vibration and joint-position sensations?,?Rhomberg sign is absent.? Coordination:?no ataxia,?no titubation,?wvaocy-bj-tfza, bcmb-gvzd-[id number] test and rapid alternating movements were normal.? Gait Exam:?Within normal limits.? Cerebellar Signs:?Ijewav-jm-blio and nfrp-eg-ghlx is normal,?no dysdiadochokinesia?.? Extrapyramidal System:?No tremor, rigidity with normal facial expressions,?No bradykinesia, no bradyphrenia. Normal arm swing and posture. No propulsion or retropulsion.? Speech:?Normal,?no dysphasia or dysarthria..? Mini Mental Status Exam: ? Level of Consciousness:?Alert.? Orientation:?Knows correct year, month, date, day and season,?Knows correct city, county and state. Knows correct location and floor.? Registration:?Able to register 3 objects.? Attention:?Serial 7's performed accurately.? Recall:?Able to recall 3 out of 3 objects.? Language:?Normal spontaneous speech, fluency, repetition,naming, comprehension, reading and writing.? Total Score:?30/30.? Assessment & Plan Assessment & Plan (1) Lumbar radiculitis: Comment: April 2024 NCV/EMG of lower extremities : Normal including EMG left L4-S1. Code(s): M54.16 - Radiculopathy, lumbar region Category: Medical (2) Anosmia: Code(s): R43.0 - Anosmia Category: Medical Plan: Brain MRI May 2024 reviewed with patient. Single , fairly large left posterior parietal periventricular white matter abnormality- non specific ? demyelinative.Atypical for lacunar stroke (3) Demyelinating changes in brain: Code(s): G37.9 - Demyelinating disease of central nervous system, unspecified Category: Medical (4) Meningioma: Code(s): D32.9 - Benign neoplasm of meninges, unspecified Category: Medical (5) Tension headache: Code(s): G44.209 - Tension-type headache, unspecified, not intractable Category: Medical Plan Amitriptyline 25 mg. Neurosurgical consult Medications: New amitriptyline 25 mg PO BEDTIME 30 tabs 5RF Coding Level of Care Code Est Pt Level 4 (41687) Diagnoses Lumbar radiculitis M54.16 Anosmia R43.0 Demyelinating changes in brain G37.9 Meningioma D32.9 Tension headache G44.209
--- OUTSIDE RECORDS SUMMARY | 2025-10-30 16:50 | XMS_ITS | Clinical Summary ---
Author Organization [facility] [address] [facility] lding Address [address] [place] [address] Phone Care Team Providers Care Tail Puller Name Role Phone Suzi Boyle MD Primary Care Prov ider Allergies No known active allergies Medications traMADoL (ULTRAM) 50 mg tablet TAKE 1 TABLET BY MOUTH FOUR TIMES A DAY FOR 7 DAYS 01/27/2024 Active cholecalciferol (VITAMIN D-3) 50 mcg (2,000 unit) tablet Take 1 Tablet by mouth daily. During winter and spring Active multivitamin with minerals tablet Take 1 Tab by mouth daily. Active desvenlafaxine succinate (PRISTIQ) 25 mg 24 hr tablet Take 1 tablet (25 mg total) by mouth 1 (one) time each day in the morning. 07/20/2025 Active amitriptyline (ELAVIL) 10 mg tablet TAKE 1 TABLET ORALLY BEDTIME FOR TENSION HEADACHE FOR 30 DAYS 08/29/2025 Active Active Problems Problem Noted Date Diagnosed Date Moderate mixed hyperlipidemia not requiring stat in therapy 09/28/2025 Hypercholesterolemia 09/25/2025 Anosmia 09/25/2025 Cerebral meningioma 09/14/2025 Assessment & Plan (09/14/2025 5:10 PM EST): I reviewed the MRI from [facility] with Ms. Conley and compared it to the prior one at [facility] last year showing the right frontal dural based lesion to have the exact same morphology and size with no adjacent vasogenic edema. This is small, stable in size and she is asymptomatic so, I am not recommending surgery at this juncture. We discussed that these are generally benign and slow-growing however, it may change more quickly in the perimenopausal years. I recommended a follow-up MRI with and without in 1 year but she should certainly contact us if she develops new symptoms in the interim. Chronic low back pain 08/04/2024 Assessment & Plan (09/14/2025 5:12 PM EST): Ms. Yarbrough has had previous lower back surgery and continues to have some issues mainly with the left leg though it can be both. At the last review of her lumbar imaging, I felt there was no further surgery to offer. She is being followed by neurology and was recently prescribed amitriptyline which she has not yet started. I think it is a good idea to start and give it a few months to see if it helps with her nerve pain. Acute hip pain, left 04/04/2024 Overview (08/04/2024): [...] Review of the cervical spine MRI from [facility] dated 01/17/2023 shows reversal of the normal [...] Encounters Date Type Department Care Team Description 10/09/2025 4:19 PM EST - 10/09/2025 11:59 PM EST Hospital Encounter Radiology Department - [address] [phone] Encounter for screening mammogram for malignant neoplasm of breast Discharge Disposition: Home or Self Care 09/28/2025 8:45 AM EST Lab Draw Station - [address] [phone] Screening, anemia, deficiency, iron; Hypercholesterolemia; Screening for cardiovascular condition 09/28/2025 Results Follow-Up [address] [phone] Tre Alexander PA 09/25/2025 4:00 PM EST Office Visit [address] [phone] Tre Alexander PA Adult general medical examination (Primary Dx); Screening, anemia, deficiency, iron; Hypercholesterolemia; Screening for cardiovascular condition; Positive ANTONELLA (antinuclear antibody); Cerebral meningioma (CMS/HCC V24, CMS/HCC V28); Anxiety; 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; Anosmia 09/25/2025 Telephone Adult [address] [phone] Tre Alexander PA 09/14/2025 3:45 PM EST Office Visit [facility] [address] [place] [address] Nicolle Asher MD Cerebral meningioma (CMS/HCC V24, CMS/HCC V28) (Primary Dx); 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 09/14/[address] [phone] Suzi Sexton MD from Last 3 Months Immunizations Immunization Administration Dates Next Due Influenza Quadravalent, MDCK , 0.5ml, preservative free (Flucelvax) 6mo and older 2020 Pfizer SARS-CoV-2 COVID-19, mRNA, LNP-S, preservative free 09/28/2021 Td Tetanus diptheria (Tdvax) 7yo and older 06/08 Tdap Tetanus diptheria acell ular pertussis (Boostrix; Adacel) 7yo and older 04/05/2019 Surgical History Surgery Date Site/Laterality Comments OTHER SURGICAL HISTORY 11/08/1989 - 11/07/1990 Left PROCEDURE: ---- OTHER ----; COMMENT: Hand surgery secondary to trauma WISDOM TOOTH EXTRACTION PROCEDURE: HISTORICAL WISDOM TEETH EXTRACTION KNEE SURGERY 08/2012 PROCEDURE: HISTORICAL KNEE SURGERY; COMMENT: Left ACL reconstruction; [facility] BACK SURGERY 1989 PROCEDURE: HISTORICAL BACK SURGERY; COMMENT: L4-5 fusion, harvest of iliac crest bone graft 1989 and hardware removed 2001 BACK SURGERY 05/18/2019 PROCEDURE: HISTORICAL BACK SURGERY; COMMENT: L2-4 decompression and fusion for adjacent segment degeneration and spondylolisthesis, Dr. Asher BACK SURGERY 08/2020 PROCEDURE: HISTORICAL BACK SURGERY; COMMENT: L2-4 revision for fractured left L4 screw, Dr. Asher CARPAL TUNNEL RELEASE 07/21/2023 Left PROCEDURE: HISTORICAL CARPAL TUNNEL REL BREAST ENHANCEMENT SURGERY W IMPLANT 2003 ENDOMETRIAL ABLATION 2017 SPINE SURGERY 1989, 2002, 2018, 2019 LAMINECTOMY LUMBAR LAMINECTOMY LUMBAR FUSION Medical History Medical History Date Comments Backache, unspecified 03/09/2006 DX:Backach e, unspecified Anxiety 05/12/2010 DX:Anxiety Other specified personal his tory presenting hazards to health(V15.89) DX:Other specifie d personal history presenting hazards to health(V15.89); COMMENT: culpo H/O Sjogren's disease (CMS/HCC V24) Osteoarthritis Headache Cervical disc disorder Low back pain Neck pain Moderate mixed hyperlipidemi a not requiring statin therapy 09/28/2025 Family History Medical History Relation Name Comments Breast cancer Aunt m 60s mothers sister Alcohol abuse Brother 1 Noam Hypertension Brother 1 Noam Alcohol abuse Brother 2 Will Early Brother 2 Will Hypertension Brother 2 Will Mental illness Brother 2 Will Mental illness Daughter 1 Althea Depression Daughter 2 Mental illness Daughter 2 Alcohol abuse Father Isiah Prostate cancer Father Isiah No Known Problems Maternal Grandfather No Known Problems Maternal Grandmother Arthritis Mother Danielle COPD Mother Danielle Cancer Mother Danielle Depression Mother Danielle Lung cancer Mother Danielle Other: hashimotos Mother Danielle Other: shellfish Mother Danielle Cancer Mother's Brother 1 Du Cancer Mother's Brother 2 Du Arthritis Mother's Sister 1 Breast cancer Mother's Sister 2 Arthritis Mother's Sister 4 Cancer Mother's Sister 5 Diabetes Mother's side 1 Other: heart disease Mother's side 2 No Known Problems Paternal Grandfather Alzheimer's disease Paternal Grandmother Liz Hypertension Sister Ana Relation Name Status Comments Aunt m 60s Alive Brother 1 Noam Alive Brother 2 Will (Age 50) Daughter 1 Althea Alive Daughter 2 Alive Daughter 3 Alive Father Isiah Alive Maternal Grandfather Maternal Grandmother Mother Danielle Alive hypothyroidism Mother's Brother 1 Du Alive Mother's Brother 2 Du Alive Mother's Sister 1 Alive Mother's Sister 2 Alive Mother's Sister 3 Alive Mother's Sister 4 Alive Mother's Sister 5 Alive Mother's side 1 Mother's side 2 Paternal Grandfather Paternal Grandmother Liz Sister Ana Alive Social History Tobacco Use Types Packs/Day Years Used Date Smoking Tobacco: Former Cigarettes 0.5 10 Q uit: 09/08/2003 Smokeless Tobacco: Never Tobacco Cessation:Counseling Given: Not Answered Alcohol Use Standard Drinks/Week Comments Yes 0 (1 standard drink = 0.6 oz pur e alcohol) Less than one drink per week Housing Instability Answer Date Recorde d Are you worried that in the next 2 months you may not have stable housing? No 09/25/2025 Food Access & Nutrition Answer Date Rec orded Do you have access to a vari ety of food including fruits and vegetables? Yes 09/25/2025 Access to Healthcare Answer Date Record ed Within the last 3 months, errol wade many times did you visit the emergency department for your medical care? 0 09/25/2025 Health Literacy Answer Date Recorded How often do you need to hav e someone help you when you read instructions, pamphlets, or other written material from your doctor or pharmacy? Never 09/25/2025 Caregiver: How often do you need to have someone help you when you read instructions, pamphlets, or other written material from your doctor or pharmacy? Not on file 09/25/2025 Financial Risk Answer Date Recorded How hard is it for you to pa y for the very basics like food, housing, medical care, and air conditioning / heating? Not very hard 09/25/2025 Transportation Answer Date Recorded Has the lack of transportati on kept you from meetings, work, or from getting things needed for daily living? No Has the lack of transportati on kept you from medical appointments or from getting medications? No 09/25/2025 Social Isolation Answer Date Recorded How often do you feel lonely or isolated from th ose around you? Never 09/25/2025 Food Risk Answer Date Recorded Within the past 12 months we worried whether our food would run out before we got money to buy more. Never true 09/25/2025 Within the past 12 months th e food we bought just didn't last and we didn't have money to get more. Never true 09/25/2025 Dependent Care Answer Date Recorded Do you need help finding or paying for care for your loved ones. For example, children librarian or elderly care for an older adult? No 09/25/2025 Education Answer Date Recorded Do you think completing more education or training, like finishing a GED, going to college, or learning a trade, would be helpful for you? No 09/25/2025 Employment and Income Answer Date Recor ded During the last four weeks, have you been actively looking for work? No 09/25/2025 Living Situation Answer Date Recorded What is your living situation? Unrecognized valu e 09/25/2025 Interpersonal Safety Answer Date Record ed Physical [...] Sign Reading Time Taken Comments Blood Pressure 109/66 09/25/2025 3:49 PM EST Pulse 66 09/25/2025 3:49 PM EST Temperature 36.6 C (97.8 F) 09/25/2025 3:49 PM EST Respiratory Rate 15 05/17/2025 2:08 PM EDT Oxygen Saturation 100% 05/17/2025 2:08 PM EDT Inhaled Oxygen Concentration - - Weight 68 kg (150 lb) 09/25/2025 3:49 PM EST Height 163.8 cm (5' 4.5 ) 09/25/2025 3:49 PM EST Body Mass Index 25.35 09/25/2025 3:49 PM EST Plan of Treatment Health Maintenance Due Date Last Done Comments Pneumococcal Vaccine: 50+ Years (1 of 1 - PCV) 2024 Zoster Vaccines (1 of 2) 2024 COVID-19 Vaccine (4 - season) 2025 09/28/2021, 02/16/2021, 01/26/2021 Cervical Cancer Screening: HPV 08/05/2026 08/05/2021 Social Influencers of Health Screening 09/25/2026 09/25/2025 Breast Cancer Screening 10/09/2027 10/09/20, 10/02/2024, 09/28/2023, Additional history exists DTaP,Tdap,and Td Vaccines (3 - Td or Tdap) 04/05/2029 04/05/2019, 06/08/2005 Cholesterol Screening (Lipid Panel) 09/28/2030 09/28/2025, 09/18/2024, 01/23/2022 Colorectal Cancer Screening: Colonoscopy 05/17/2035 05/17/2025 RSV Immunization Adult Patients (1 - 1-dose 75+ series) 2049 Influenza Vaccine Discontinued 2020 Hepatitis C Screening Completed 09/18/2024 Depression Screening Completed 02/01/2025 HIB Vaccines Aged Out No longer eligi ble based on patient's age to complete this topic HIV Screening Discontinued HPV Vaccines Aged Out No longer eligi ble based on patient's age to complete this topic Hepatitis A Vaccines Aged Out No long er eligible based on patient's age to complete this topic Hepatitis B Vaccines Discontinued IPV Vaccines Aged Out No longer eligi [...] Procedure Name Priority Date/Time Associated Diagnosis Comments MR BRAIN WO CONTRAST Routine 10/10/2025 2:09 PM EST MG MAMMO DIGITAL SCREENING W JAQUAN BILAT Routine 10/09/2025 4:46 PM EST Encounter for screening mammogram for malignant neoplasm of breast CBC WITH AUTO DIFFERENTIAL Routine 09/28/2025 8:43 AM EST Screening, anemia, deficiency, iron COMPREHENSIVE METABOLIC PANEL Routine 09/28/2025 8:43 AM EST Screening for cardiovascular condition LIPID PANEL WITH REFLEX TO DIRECT LDL Routine 09/28/2025 8:43 AM EST Hypercholesterolemia CBC AND DIFFERENTIAL Routine 09/28/2025 8:43 AM EST Screening, anemia, deficiency, iron COLONOSCOPY Routine 05/17/2025 1:47 PM EDT Colon cancer screening HEPATITIS C ANTIBODY Routine 09/18/2024 9:03 AM EST Need for hepatitis C screening test HM HPV Routine 08/05/2021 from Last 3 Months or Most Recently Relevant to Health Maintenance Results * MR Brain wo Contrast (10/10/2025 2:09 PM EST) Anatomical Region Laterality Modality Head and Neck Magnetic Resonan ce us Historical Provider MD MORA MRI PROCEDURES Final Result * MG Mammo Digital Screening w Jaquan bilat (10/09/2025 4:46 PM EST) Anatomical Region Laterality Modality Breast Bilateral Mammography 10/10/2025 2:50 PM EST Impressions 10/10/2025 2:54 PM EST Benign. BI-RADS CATEGORY: 2 - BENIGN RECOMMENDATION: Screening bilateral mammogram is recommended in 1 year. Mammo Location: [facility], [address] [place] [address], [phone], . -------- FINAL REPORT -------- Dictated By: Milly Villagomez Dictated Date: 10/10/2025 14:50 ET Assigned Physician: Milly Villagomez Reviewed and Electronically Signed By: Milly Villagomez Signed Date: 10/10/2025 14:54 ET Workstation ID: [id number] Transcribed By: Self Edit Transcribed Date: 10/10/2025 14:50 ET Narrative 10/10/2025 2:54 PM EST CLINICAL: 50 years old, Female, routine annual exam. Saline implants. COMPARISON: Mammograms dating back to 09/17/2021 with most recent of 10/02/2024. TECHNIQUE: Bilateral MLO and CC views were obtained digitally with 3-D mammogram (digital breast tomosynthesis). Implant-displaced and abc-hjevivi-jeyehlyyt imaging was performed. Computer-aided detection was utilized in evaluation of this exam (CAD). FINDINGS: There is no evidence of suspicious mass or architectural distortion. No worrisome calcifications are evident. There has been no significant change from prior exam(s). BREAST DENSITY: B - There are scattered areas of fibroglandular density. Procedure Note Milly Villagomez MD - 10/10/2025 CLINICAL: 50 years old, Female, routine annual exam. Saline implants. COMPARISON: Mammograms dating back to 09/17/2021 with most recent of10/02/2024. TECHNIQUE: Bilateral MLO and CC views were obtained digitally with 3-Dmammogram (digital breast tomosynthesis). Implant-displaced oshggr-nqhhovy-lvdnymxnw imaging was performed. Computer-aided detection wasutilized in evaluation of this exam (CAD). FINDINGS: There is no evidence of suspicious mass or architectural distortion. Noworrisome calcifications are evident. There has been no significantchange from prior exam(s). BREAST DENSITY: B - There are scattered areas of fibroglandular density. IMPRESSION: Benign. BI-RADS CATEGORY: 2 - BENIGN RECOMMENDATION: Screening bilateral mammogram is recommended in 1 year. Mammo Location: [facility], [address] [place] [address], [id number], . -------- FINAL REPORT -------- Dictated By: Milly Villagomez Dictated Date: 10/10/2025 14:50 ET Assigned Physician: Milly Villagomez Reviewed and Electronically Signed By: Milly Villagomez Signed Date: 10/10/2025 14:54 ET Workstation ID: [id number] Transcribed By: Self Edit Transcribed Date: 10/10/2025 14:50 ET us Suzi Boyle MD IMG BI PROCEDURES Final Result * (ABNORMAL) Lipid panel with reflex to direct LDL (09/28/2025 8:43 AM EST) Cholesterol 212(H) 0 - 200 mg/dL 09/28/2025 12:[address] [facility] Triglycerides 60 0 - 150 mg/dL 09/28/2025 12:09 PM [facility] HDL 82 >=40 mg/dL 09/28/2025 12:09 PM [facility] LDL Calculated 118(H) 0 - 100 mg/dL 09/28/2025 12:09 PM [facility] Comment:Estimated LDL Calcul ated using equation: Total cholesterol - HDL cholesterol - (Triglycerides/5) VLDL Cholesterol [place] 12 mg/dL 09/28/2025 12:09 PM [facility] Non HDL Chol. (LDL+VLDL) 130 <145 mg/dL 09/28/2025 12:09 PM [facility] Chol/HDL Ratio 2.6 0.0 - 4.4 09/28/2025 12:09 PM [facility] Blood Venous blood specimen / Unknown Venipuncture / Unknown 09/28/2025 8:43 AM EST 09/28/2025 8:43 AM EST us [facility] BLOOD ORDERABLES Final Res ult [facility] [address] [place] [address], * (ABNORMAL) CBC auto differential (09/28/2025 8:43 AM EST) WBC 3.8(L) 4.8 - 10.8 K/mcL LAB HEMETOLOGY METHOD 09/28/2025 12:27 PM [facility] RBC 4.00 3.80 - 4.80 M/mcL LAB HEMETOLOGY METHOD 09/28/2025 12:27 PM [facility] Hemoglobin 12.4 11.5 - 16.0 g/dL LAB HEMETOLOGY METHOD 09/28/2025 12:27 PM [facility] Hematocrit 37.1 35.0 - 47.0 % LAB HEMETOLOGY METHOD 09/28/2025 12:27 PM [facility] MCV 93.7 79.0 - 98.0 FL LAB HEMETOLOGY METHOD 09/28/2025 12:27 PM [facility] MCH 31.3 27.0 - 32.0 pcg LAB HEMETOLOGY METHOD 09/28/2025 12:27 PM [facility] MCHC 33.4 32.0 - 37.0 g/dL LAB HEMETOLOGY METHOD 09/28/2025 12:27 PM [facility] RDW 11.6 11.0 - 15.0 % LAB HEMETOLOGY METHOD 09/28/2025 12:27 PM [facility] Platelets 319 130 - 400 K/mcL LAB HEMETOLOGY METHOD 09/28/2025 12:27 PM [facility] MPV 9.3 7.0 - 11.0 FL LAB HEMETOLOGY METHOD 09/28/2025 12:27 PM [facility] NRBC 0.0 <1.0 % LAB HEMETOLOGY METHOD 09/28/2025 12:27 PM [facility] NRBC Absolute 0.00 <0.10 K/mcL LAB HEMETOLOGY METHOD 09/28/2025 12:27 PM [facility] Neutrophils Relative 38.9 % LAB HEMETOLOGY METHOD 09/28/2025 12:27 PM [facility] Lymphocytes Relative 44.9 % LAB HEMETOLOGY METHOD 09/28/2025 12:27 PM [facility] Monocytes Relative 11.4 % LAB HEMETOLOGY METHOD 09/28/2025 12:27 PM [facility] Eosinophils Relative 3.5 % LAB HEMETOLOGY METHOD 09/28/2025 12:27 PM [facility] Basophils Relative 0.8 % LAB HEMETOLOGY METHOD 09/28/2025 12:27 PM [facility] Immature Granulocytes Relative 0.5 % LAB HEMETOLOGY METHOD 09/28/2025 12:27 PM [facility] Neutrophils Absolute 1.46(L) 1.50 - 7.00 K/mcL LAB HEMETOLOGY METHOD 09/28/2025 12:27 PM [facility] Lymphocytes Absolute 1.69 1.00 - 5.00 K/mcL LAB HEMETOLOGY METHOD 09/28/2025 12:27 PM [facility] Monocytes Absolute 0.43 0.20 - 1.00 K/mcL LAB HEMETOLOGY METHOD 09/28/2025 12:27 PM [facility] Eosinophils Absolute 0.13 0.00 - 0.50 K/mcL LAB HEMETOLOGY METHOD 09/28/2025 12:27 PM [facility] Basophils Absolute 0.03 0.00 - 0.20 K/mcL LAB HEMETOLOGY METHOD 09/28/2025 12:27 PM [facility] Immature Granulocytes Absolute 0.02 0.00 - 0.03 K/mcL LAB HEMETOLOGY METHOD 09/28/2025 12:27 PM [facility] Blood Venous blood specimen / Unknown Venipuncture / Unknown 09/28/2025 8:43 AM EST 09/28/2025 8:43 AM EST [facility] BLOOD ORDERABLES Final Res ult [facility] [address] [place] [address], * Comprehensive metabolic panel (09/28/2025 8:43 AM EST) Sodium 141 133 - 145 mmol/L 09/28/2025 12:02 PM [facility] Potassium 4.7 3.5 - 5.5 mmol/L 09/28/2025 12:02 PM [facility] Chloride 102 96 - 110 mmol/L 09/28/2025 12:02 PM [facility] CO2 32 21 - 32 mmol/L 09/28/2025 12:02 PM [facility] Anion Gap 7 3 - 11 09/28/2025 12:02 PM [facility] Glucose 83 70 - 100 mg/dL 09/28/2025 12:02 PM [facility] BUN 14 5 - 25 mg/dL 09/28/2025 12:02 PM [facility] Creatinine 0.73 0.50 - 1.10 mg/dL 09/28/2025 12:02 PM [facility] eGFR 100 >=60 mL/min/1. 73m2 09/28/2025 12:02 PM [facility] Comment:Calculation based on the Chronic Kidney Disease Epidemiology Collaboration (CKD-EPI) equation refit without adjustment for race. BUN/Creatinine Ratio 19.2 09/28/2025 12:02 PM [facility] Calcium 9.3 8.5 - 10.5 mg/dL 09/28/2025 12:02 PM [facility] AST (SGOT) 33 10 - 42 unit/L 09/28/2025 12:02 PM [facility] ALT (SGPT) 22 10 - 60 unit/L 09/28/2025 12:[address] [facility] Alkaline Phosphatase 48 42 - 121 unit/L 09/28/2025 12:[address] [facility] Total Protein 6.8 6.0 - 8.0 g/dL 09/28/2025 12:02 PM [facility] Albumin 4.3 3.2 - 5.0 g/dL 09/28/2025 12:02 PM [facility] Total Bilirubin 0.5 0.0 - 1.4 mg/dL 09/28/2025 12:02 PM [facility] Blood Venous blood specimen / Unknown Venipuncture / Unknown 09/28/2025 8:43 AM EST 09/28/2025 8:43 AM EST [facility] BLOOD ORDERABLES Final Res ult [facility] [address] [place] [address], [place] [phone] * COLONOSCOPY Anesthesia - MAC; [facility] ENDOSCOPY (05/17/2025 1:47 PM EDT) Anatomical Region Laterality Modality Endoscopy 05/17/2025 1:14 PM EDT Impressions 05/17/2025 1:45 PM EDT - Diverticulosis in the sigmoid colon and in the transverse colon. - The examination was otherwise normal on direct and retroflexion views. - No specimens collected. Recommendation: - Repeat colonoscopy in 10 years for screening purposes. Narrative 05/17/2025 1:45 PM EDT [facility] Patient Name: Amrita Conley Procedure [...] malignant neoplasm of colon CPT copyright 2020 [employer]. All rights reserved. The codes documented in this report are preliminary and upon lead project engineer review may be revised to meet current compliance requirements. Anne Marie Ashton MD 05/17/2025 1:45:18 PM This report has been signed electronically.Anne Marie Ashton MD Number of Addenda: 0 Note Initiated On: 05/17/2025 1:14 PM Scope In: Scope Out: Endoscopy Department at [facility] - [address] [place] [phone] Procedure Note Anne Marie Ashton MD - 05/17/2025 [facility] GI Patient Name: Amrita Conley Procedure [...] for malignantneoplasm of colon CPT copyright 2020 [employer]. All rights reserved. The codes documented in this report are preliminary and upon lead project engineer reviewmay be revised to meet current compliance requirements. Anne Marie Ashton MD 05/17/2025 1:45:18 PM This report has been signed electronically.Anne Marie Ashton MD Number of Addenda: 0 Note Initiated On: 05/17/2025 1:14 PM Scope In: Scope Out: Endoscopy Department at [facility] - [address] [place] [phone] IMPRESSION: - Diverticulosis in the sigmoid colon and in the transverse colon. - The examination was otherwise normal on directand retroflexion views. - No specimens collected. Recommendation: - Repeat colonoscopy in 10 years for screening purposes. us Anne Marie Ashton MD GI~PROCEDURE ORDERABLES Final Result * Hepatitis C antibody (09/18/2024 9:03 AM EST) Hepatitis C Antibody Negative Negative LAB CHEMISTRY METHOD 09/18/2024 12:59 PM EST [facility] ([facility]) [facility] Blood Venous blood specimen / Unknown Venipuncture / Unknown 09/18/2024 9:03 AM EST 09/18/2024 9:03 AM EST [facility] BLOOD ORDERABLES Final Res ult [facility] ([facility]) [facility] [address] [place] [address], [place] [phone] * Cervical Cancer Screening: HPV (08/05/2021) Pathologist [facility] Cervical Cancer Screening: HPV Negative, Abstracted Historical Provider HEALTH MAINTENANCE Final Result from Last 3 Months or Most Recently Relevant to Health Maintenance Insurance [phone] [place] [address] Care Teams Tail Puller Relationship Specialty Start Date End Date Suzi Boyle MD [address] [place] [id number] PCP - General Internal Medicine 09/12/25
== END 2025-10-30 15:58 | disposition home or self-care (01) ==
LOC: HO.HSM 15:49
PROVIDERS: Visit Provider Psychiatry & Neurology Neurology
DX: M54.16 Radiculopathy, lumbar region (principal); R43.0 Anosmia; G37.9 Demyelinating disease of central nervous system, unspecified; D32.9 Benign neoplasm of meninges, unspecified; G44.209 Tension-type headache, unspecified, not intractable
CPT/HCPCS: 99214